=== PATIENT | male | born 1940 | race Caucasian/White ===

== ENCOUNTER 2018-04-22 16:36 | Inpatient (IN) | payer MEDICARE ==
[2018-04-22 17:10] LABS: Appearance,Urine Clear (Clear); Bacteria,Urine Rare /hpf; Bilirubin,Urine Negative (Negative); Blood,Urine Large (Negative); Color,Urine Light Red; Glucose,Urine (UA) Negative (Negative); Ketones,Urine Negative (Negative); Leukocyte Esterase,Urine Negative (Negative); Mucus,Urine Rare /hpf; Nitrite,Urine Negative (Negative); PH, Urine 7.5 (5.0-8.0); Protein,Urine 1+ (Negative); RBC,Urine 58 /hpf (0-5); Specific Gravity,Urine 1.004 (1.001-1.035); Urobilinogen,Urine <2.0 mg/dL (<2.0); WBC,Urine 6 /hpf (0-5)
[2018-04-22] MEDS ORDERED: SODIUM CHLORIDE 0.9% 1,000 ML IV STA (18:13)
--- NOTE | 2018-04-22 18:37 | ED ---
Male Urogenital HPI - General Source: patient, RN notes reviewed Mode of arrival: ambulatory Limitations: no limitations <Ghanshyam Sofia - Last Filed: 04/22/18 20:26> <Jac Ray - Last Filed: 04/22/18 20:42> - General Chief complaint: Urogenital Stated complaint: blood in urine Time Seen by Provider: 04/22/18 18:13 - History of Present Illness Initial comments: 77-year-old male presents emergency Department chief complaint of hematuria. Patient states he noticed it last night has continued today. Patient states she has no associated pain including dysuria or flank pain. Patient denies any nausea, vomiting, diarrhea, constipation. He does have a history kidney stones but this is not seems similar. Patient has no history of renal or bladder cancer. Patient denies any fever, chills, chest pain or shortness of breath. ( Ghanshyam Sofia) - Related Data Home Medications Medication Instructions Recorded Confirmed Aspirin [[place] Aspirin EC] 81 mg PO HS 04/22/18 04/22/18 Cholecalciferol [Vitamin D3] 1,000 unit PO [facility] 04/22/18 04/22/18 L.acidoph,Paracasei, B.lactis 1 cap PO HS 04/22/18 04/22/18 [Probiotic] Lisinopril [Zestril] 20 mg PO [facility] 04/22/18 04/22/18 [place] Carbonate 600 mg PO HS 04/22/18 04/22/18 Melatonin 10 mg PO HS 04/22/18 04/22/18 Mirabegron [Myrbetriq] 25 mg PO HS 04/22/18 04/22/18 Multivitamins, Thera [Multivitamin 1 tab PO [facility] 04/22/18 04/22/18 (formulary)] [place]-3 Fatty Acids [[place]-3] 1,000 mg PO BID 04/22/18 04/22/18 Primidone [Mysoline] 75 mg PO DAILY 04/22/18 04/22/18 Rivastigmine 9.5MG/24Hr Patch 1 patch TRANSDERM Q24HR 04/22/18 04/22/18 [Exelon 9.5MG/24Hr Patch] Rosuvastatin Calcium [Crestor] 40 mg PO QAM 04/22/18 04/22/18 Sotalol [Betapace] 80 mg PO BID 04/22/18 04/22/18 Tamsulosin HCl [Flomax] 0.4 mg PO QAM 04/22/18 04/22/18 Warfarin Sodium 10 mg PO SUTUTHSA 04/22/18 04/22/18 Warfarin Sodium [Coumadin] 7.5 mg PO MOWEFR 04/22/18 04/22/18 Warfarin [Coumadin] 1 mg PO MOWEFR 04/22/18 04/22/18 Allergies Allergy/AdvReac Type Severity Reaction Status Date / Time diphenhydramine Allergy Unknown Verified 04/22/18 16:57 [From Benadryl] haloperidol [From Haldol] Allergy Unknown Verified 04/22/18 16:57 NSAIDS (Non-Steroidal Allergy Unknown Verified 04/22/18 16:57 Anti-Inflamma latex AdvReac "SKIN Verified 04/22/18 18:22 REDNESS" Review of Systems ROS Other: All systems not noted in ROS Statement are negative. <Ghanshyam Sofia - Last Filed: 04/22/18 20:26> ROS Other: All systems not noted in ROS Statement are negative. <Jac Ray - Last Filed: 04/22/18 20:42> ROS Statement: Those systems with pertinent positive or pertinent negative responses have been documented in the HPI. Past Medical History Past Medical History: Atrial Fibrillation, Dementia, Hyperlipidemia, Hypertension History of Any Multi-Drug Resistant Organisms: None Reported Past Surgical History: Coronary Bypass/CABG, Hernia Repair, Pacemaker Additional Past Surgical History / Comment(s): cataract Past Psychological History: Bipolar Smoking Status: Current every day smoker Past Alcohol Use History: Rare Past Drug Use History: None Reported <Ghanshyam Sofia - Last Filed: 04/22/18 20:26> General Exam Limitations: no limitations General appearance: alert, in no apparent distress Head exam: Present: atraumatic, normocephalic, normal inspection Neck exam: Present: normal inspection. Absent: tenderness, meningismus, lymphadenopathy Respiratory exam: Present: normal lung sounds bilaterally. Absent: respiratory distress, wheezes, rales, rhonchi, stridor Cardiovascular Exam: Present: regular rate, normal rhythm, normal heart sounds. Absent: systolic murmur, diastolic murmur, rubs, gallop, clicks GI/Abdominal exam: Present: soft, normal bowel sounds. Absent: distended, tenderness, guarding, rebound, rigid Back exam: Absent: CVA tenderness (R), CVA tenderness (L) Skin exam: Present: warm, dry, intact, normal color. Absent: rash <Ghanshyam Sofia - Last Filed: 04/22/18 20:26> Course <Ghanshyam Sofia - Last Filed: 04/22/18 20:26> <Jac Ray - Last Filed: 04/22/18 20:42> Vital Signs 04/22/18 04/22/18 16:53 19:48 Temperature 97.8 F 97.4 F L Pulse Rate 64 60 Respiratory 18 16 Rate Blood Pressure 156/75 163/88 O2 Sat by Pulse 98 98 Oximetry - Reevaluation(s) Reevaluation #1: 04/22/18 20:41 PA supervision: I proceeded a [id number] evaluation patient did discuss findings the patient is family member. Patient does have hematuria which started yesterday. The patient is on Coumadin but he is subtherapeutic at this time. He does have chronic atrial fibrillation. He has no pain and follow-up with the hematuria. He has she states it seems be clearing up. CAT scan shows a 1.8 cm mass in the right lateral bladder wall. Patient will be admitted for evaluation I did discuss the case with Dr. Fatima as well as Dr. Chapman. (Jac Ray) Medical Decision Making - Lab Data Result diagrams: 04/22/18 18:30 04/22/18 18:30 <Ghanshyam Sofia - Last Filed: 04/22/18 20:26> - Lab Data Result diagrams: 04/22/18 18:30 04/22/18 18:30 <Jac Ray - Last Filed: 04/22/18 20:42> - Medical Decision Making 77-year-old male presented for painless hematuria. CT shows evidence of bladder wall mass. Patient will be admitted for urology, oncology evaluation. Patient will be kept nothing by mouth after midnight for any possible procedures in the morning. (Ghanshyam Sofia) - Lab Data Lab Results 04/22/18 04/22/18 04/22/18 Range/Units 16:58 18:30 18:30 WBC 5.8 (3.8-10.6) k/uL RBC 4.75 (4.30-5.90) m/uL Hgb 14.1 (13.0-17.5) gm/dL Hct 43.7 (39.0-53.0) % MCV 92.0 (80.0-100.0) fL MCH 29.6 (25.0-35.0) pg MCHC 32.2 (31.0-37.0) g/dL RDW 14.1 (11.5-15.5) % Plt Count 146 L (150-450) k/uL Neutrophils % 70 % Lymphocytes % 18 % Monocytes % 5 % Eosinophils % 4 % Basophils % 1 % Neutrophils # 4.1 (1.3-7.7) k/uL Lymphocytes # 1.0 (1.0-4.8) k/uL Monocytes # 0.3 (0-1.0) k/uL Eosinophils # 0.3 (0-0.7) k/uL Basophils # 0.0 (0-0.2) k/uL PT (9.0-12.0) sec INR (<1.2) APTT (22.0-30.0) sec Sodium 143 (137-145) mmol/L Potassium 4.3 (3.5-5.1) mmol/L Chloride 107 (98-107) mmol/L Carbon Dioxide 29 (22-30) mmol/L Anion Gap 7 mmol/L BUN 21 H (9-20) mg/dL Creatinine 1.16 (0.66-1.25) mg/dL Est GFR (CKD-EPI)AfAm 71 (>60 ml/min/1.73 sqM) Est GFR (CKD-EPI)NonAf 62 (>60 ml/min/1.73 sqM) Glucose 109 H (74-99) mg/dL Calcium 9.9 (8.4-10.2) mg/dL Total Bilirubin 0.3 (0.2-1.3) mg/dL AST 33 (17-59) U/L ALT 52 (21-72) U/L Alkaline Phosphatase 68 (38-126) U/L Total Protein 6.6 (6.3-8.2) g/dL Albumin 4.3 (3.5-5.0) g/dL Amylase 69 (30-110) U/L Lipase 105 (23-300) U/L Urine Color Light Red Urine Appearance Clear (Clear) Urine pH 7.5 (5.0-8.0) Ur Specific [place] 1.004 (1.001-1.035) Urine Protein 1+ H (Negative) Urine Glucose (UA) Negative (Negative) Urine Ketones Negative (Negative) Urine Blood Large H (Negative) Urine Nitrite Negative (Negative) Urine Bilirubin Negative (Negative) Urine Urobilinogen <2.0 (<2.0) mg/dL Ur Leukocyte Esterase Negative (Negative) Urine RBC 58 H (0-5) /hpf Urine WBC 6 H (0-5) /hpf Urine Bacteria Rare H (None) /hpf Urine Mucus Rare H (None) /hpf 04/22/18 Range/Units 18:30 WBC (3.8-10.6) k/uL RBC (4.30-5.90) m/uL Hgb (13.0-17.5) gm/dL Hct (39.0-53.0) % MCV (80.0-100.0) fL MCH (25.0-35.0) pg MCHC (31.0-37.0) g/dL RDW (11.5-15.5) % Plt Count (150-450) k/uL Neutrophils % % Lymphocytes % % Monocytes % % Eosinophils % % Basophils % % Neutrophils # (1.3-7.7) k/uL Lymphocytes # (1.0-4.8) k/uL Monocytes # (0-1.0) k/uL Eosinophils # (0-0.7) k/uL Basophils # (0-0.2) k/uL PT 13.0 H (9.0-12.0) sec INR 1.3 H (<1.2) APTT 25.8 (22.0-30.0) sec Sodium (137-145) mmol/L Potassium (3.5-5.1) mmol/L Chloride (98-107) mmol/L Carbon Dioxide (22-30) mmol/L Anion Gap mmol/L BUN (9-20) mg/dL Creatinine (0.66-1.25) mg/dL Est GFR (CKD-EPI)AfAm (>60 ml/min/1.73 sqM) Est GFR (CKD-EPI)NonAf (>60 ml/min/1.73 sqM) Glucose (74-99) mg/dL Calcium (8.4-10.2) mg/dL Total Bilirubin (0.2-1.3) mg/dL AST (17-59) U/L ALT (21-72) U/L Alkaline Phosphatase (38-126) U/L Total Protein (6.3-8.2) g/dL Albumin (3.5-5.0) g/dL Amylase (30-110) U/L Lipase (23-300) U/L Urine Color Urine Appearance (Clear) Urine pH (5.0-8.0) Ur Specific [place] (1.001-1.035) Urine Protein (Negative) Urine Glucose (UA) (Negative) Urine Ketones (Negative) Urine Blood (Negative) Urine Nitrite (Negative) Urine Bilirubin (Negative) Urine Urobilinogen (<2.0) mg/dL Ur Leukocyte Esterase (Negative) Urine RBC (0-5) /hpf Urine WBC (0-5) /hpf Urine Bacteria (None) /hpf Urine Mucus (None) /hpf Disposition <Ghanshyam Sofia - Last Filed: 04/22/18 20:26> <Jac Ray - Last Filed: 04/22/18 20:42> Clinical Impression: Hematuria, Bladder mass, Dementia Disposition: ADMITTED IP TO THIS HOSP Condition: Fair Referrals: Ghanshyam Dias DO [Primary Care Provider] - 1-2 days
[2018-04-22 19:17] LABS: Albumin 4.3 g/dL (3.5-5.0); Calcium 9.9 mg/dL (8.4-10.2); Potassium 4.3 mmol/L (3.5-5.1); Total Bilirubin 0.3 mg/dL (0.2-1.3); Total Protein 6.6 g/dL (6.3-8.2)
[2018-04-22 19:19] LABS: Basophils % (A) 1 %; Eosinophils # (A) 0.3 k/uL (0-0.7); Eosinophils % (A) 4 %; HCT 43.7 % (39.0-53.0); HGB 14.1 gm/dL (13.0-17.5); INR 1.3 (<1.2); Lymphocytes % (A) 18 %; MCH 29.6 pg (25.0-35.0); MCHC 32.2 g/dL (31.0-37.0); Mean Platelet Volume 6.9; Monocytes # (A) 0.3 k/uL (0-1.0); Monocytes % (A) 5 %; Neutrophils # (A) 4.1 k/uL (1.3-7.7); Neutrophils % (A) 70 %; Partial Thromboplastin Time 25.8 sec (22.0-30.0); Platelet Count 146 k/uL (150-450); RBC 4.75 m/uL (4.30-5.90); RDW 14.1 % (11.5-15.5); WBC 5.8 k/uL (3.8-10.6)
--- NOTE | 2018-04-22 20:06 | CT ---
EXAMINATION TYPE: CT abdomen pelvis wo con DATE OF EXAM: 04/22/2018 COMPARISON: None HISTORY: hematuria, pain CT DLP: 754.5 mGycm Automated exposure control for dose reduction was used. TECHNIQUE: Helical acquisition of images was performed from the lung bases through the pelvis. FINDINGS: Lung bases are clear. There is no pleural effusion. There is no pericardial effusion. Heart is enlarg ed. Liver and spleen appear normal. Bile ducts are not dilated. Gallbladder appears normal. Pancreas appe ars normal. There is no adrenal mass. Kidneys have normal size and contour. There is no evidence of a renal mass. I see no renal or ureteral calculus. There is renal vascular calcification. There is 1.8 cm density on the right lateral wall of the urinary bladder. There is no inguinal hernia. There is no free fluid in the pelvis. I see no intestinal wall thickening. There is no evidence of mesenteric edema or adenopathy. There is no evidence of free air. There is no ascites. The appendix appears normal. Abdominal aorta is athero matous. There is no evidence of aneurysm or dissection. There are numerous sigmoid diverticula. IMPRESSION: THERE IS MASS ON THE RIGHT LATERAL WALL OF THE URINARY BLADDER SUGGESTIVE OF BLADDER TUMOR. FOLLOW-UP IS RECOMMENDED. NO RENAL STONE OR OBSTRUCTION. Colonic diverticulosis without diverticulitis.
[2018-04-22] MEDS ORDERED: LORazepam 2 MG/ML INJ IV PRN (20:27)
[2018-04-22] MEDS ORDERED: ONDANSETRON 4 MG/2 ML VIAL IVP PRN (20:27)
[2018-04-22] MEDS ORDERED: NALOXONE 0.4 MG/ML 1 ML VIAL IV PRN (20:27)
[2018-04-22] MEDS ORDERED: ACETAMINOPHEN TAB 325 MG TAB PO PRN (20:27)
[2018-04-22] MEDS ORDERED: SODIUM CHLORIDE 0.9% 1,000 ML IV SCH (20:30)
--- NOTE | 2018-04-23 07:45 | P.GSCN ---
History of Present Illness Consult date: 04/23/18 History of present illness: The patient is a 77-year-old gentleman who was brought to the hospital by his because of gross hematuria for 24 hours. The blood was dark and there was some clot in the urine. There is no pain with urination. He had no fever or chills. He had a CAT scan that showed normal upper tracks but suggestive of a mass in the bladder at 1.8 cm. The patient has had no previous urologic issues. He has not had infections. There is been no previous hematuria. He has no history of stones. The patient has not previously see had any urologic problems. He has no problems voiding. He is on Coumadin. The hematuria has subsided Review of Systems - Constitutional Reports as per HPI - Genitourinary Reports as per HPI Past Medical History Past Medical History: Atrial Fibrillation, Coronary Artery Disease (CAD), Dementia, Hyperlipidemia, Hypertension, Prostate Disorder Additional Past Medical History / Comment(s): pt's stated he has louey bodies dementia, occ tremors.pt was tested x2 for sleep apnea he does'nt have it.past kidney stone when child, hx of gout, uti's bipolar-well maintained, hx cataracts-had sx, intermittent back pain. had a shingels vaccine and pne vaccine in last 5 years History of Any Multi-Drug Resistant Organisms: None Reported Past Surgical History: Coronary Bypass/CABG, Hernia Repair, Pacemaker Additional Past Surgical History / Comment(s): cataract sx, lt inguinal hernia repair, triple vessel cabg, cardioversion Past Anesthesia/Blood Transfusion Reactions: Previous Problems w/ Anesthesia Additional Past Anesthesia/Blood Transfusion Reaction / Comm: stated that after cabg sx pt had subtle meory problems attitudes and responses to certain topics were off. stated that after pt wakes from a nap he is confused. Type of Cardiac Device: Permanent Pacemaker Device Placement Date:: 2013 ? Smoking Status: Former smoker - Past Family History Mother Family Medical History: Cancer Additional Family Medical History / Comment(s): breast cancer in her 80's, hx bipolar Father Additional Family Medical History / Comment(s): lung problems Medications and Allergies Home Medications Medication Instructions Recorded Confirmed Type Aspirin [[place] Aspirin EC] 81 mg PO HS 04/22/18 04/22/18 History Cholecalciferol [Vitamin D3] 1,000 unit PO QAM 04/22/18 04/22/18 History L.acidoph,Paracasei, B.lactis 1 cap PO HS 04/22/18 04/22/18 History [Probiotic] Lisinopril [Zestril] 20 mg PO QAM 04/22/18 04/22/18 History [place] Carbonate 600 mg PO HS 04/22/18 04/22/18 History Melatonin 10 mg PO HS 04/22/18 04/22/18 History Mirabegron [Myrbetriq] 25 mg PO HS 04/22/18 04/22/18 History Multivitamins, Thera [Multivitamin 1 tab PO QAM 04/22/18 04/22/18 History (formulary)] [place]-3 Fatty Acids [[place]-3] 1,000 mg PO BID 04/22/18 04/22/18 History Primidone [Mysoline] 75 mg PO DAILY 04/22/18 04/22/18 History Rivastigmine 9.5MG/24Hr Patch 1 patch TRANSDERM Q24HR 04/22/18 04/22/18 History [Exelon 9.5MG/24Hr Patch] Rosuvastatin Calcium [Crestor] 40 mg PO QAM 04/22/18 04/22/18 History Sotalol [Betapace] 80 mg PO BID 04/22/18 04/22/18 History Tamsulosin HCl [Flomax] 0.4 mg PO QAM 04/22/18 04/22/18 History Warfarin Sodium 10 mg PO SUTUTHSA 04/22/18 04/22/18 History Warfarin Sodium [Coumadin] 7.5 mg PO MOWEFR 04/22/18 04/22/18 History Warfarin [Coumadin] 1 mg PO MOWEFR 04/22/18 04/22/18 History Allergies Allergy/AdvReac Type Severity Reaction Status Date / Time diphenhydramine Allergy Unknown Verified 04/22/18 16:57 [From Benadryl] haloperidol [From Haldol] Allergy Unknown Verified 04/22/18 16:57 NSAIDS (Non-Steroidal Allergy Unknown Verified 04/22/18 16:57 Anti-Inflamma latex AdvReac "SKIN Verified 04/22/18 18:22 REDNESS" Surgical - Exam Vital Signs Temp Pulse Resp BP Pulse Ox 97.8 F 64 18 156/75 98 04/22/18 16:53 04/22/18 16:53 04/22/18 16:53 04/22/18 16:53 04/22/18 16:53 - General well developed, well nourished, obese - Eyes PERRL - ENT no hearing loss - Neck no masses, trachea midline - Respiratory normal expansion, normal respiratory effort - Cardiovascular Rhythm: regular - Abdomen Abdomen: soft, non tender - Genitourinary normal penis with no external lesions, testicles present - Integumentary no rash, no growths - Neurologic normal coordination, normal sensation - Musculoskeletal normal posture - Psychiatric oriented to time, oriented to person, oriented to place, speech is normal, memory intact Results - Labs 04/22/18 18:30 04/22/18 18:30 Abnormal Lab Results - Last 24 Hours (Table) 04/22/18 04/22/18 04/22/18 Range/Units 16:58 18:30 18:30 Plt Count 146 L (150-450) k/uL PT (9.0-12.0) sec INR (<1.2) BUN 21 H (9-20) mg/dL Glucose 109 H (74-99) mg/dL Urine Protein 1+ H (Negative) Urine Blood Large H (Negative) Urine RBC 58 H (0-5) /hpf Urine WBC 6 H (0-5) /hpf Urine Bacteria Rare H (None) /hpf Urine Mucus Rare H (None) /hpf 04/22/18 Range/Units 18:30 Plt Count (150-450) k/uL PT 13.0 H (9.0-12.0) sec INR 1.3 H (<1.2) BUN (9-20) mg/dL Glucose (74-99) mg/dL Urine Protein (Negative) Urine Blood (Negative) Urine RBC (0-5) /hpf Urine WBC (0-5) /hpf Urine Bacteria (None) /hpf Urine Mucus (None) /hpf Diabetes panel 04/22/18 Range/Units 18:30 Sodium 143 (137-145) mmol/L Potassium 4.3 (3.5-5.1) mmol/L Chloride 107 (98-107) mmol/L Carbon Dioxide 29 (22-30) mmol/L BUN 21 H (9-20) mg/dL Creatinine 1.16 (0.66-1.25) mg/dL Glucose 109 H (74-99) mg/dL Calcium 9.9 (8.4-10.2) mg/dL AST 33 (17-59) U/L ALT 52 (21-72) U/L Alkaline Phosphatase 68 (38-126) U/L Total Protein 6.6 (6.3-8.2) g/dL Albumin 4.3 (3.5-5.0) g/dL Calcium panel 04/22/18 Range/Units 18:30 Calcium 9.9 (8.4-10.2) mg/dL Albumin 4.3 (3.5-5.0) g/dL Pituitary panel 04/22/18 Range/Units 18:30 Sodium 143 (137-145) mmol/L Potassium 4.3 (3.5-5.1) mmol/L Chloride 107 (98-107) mmol/L Carbon Dioxide 29 (22-30) mmol/L BUN 21 H (9-20) mg/dL Creatinine 1.16 (0.66-1.25) mg/dL Glucose 109 H (74-99) mg/dL Calcium 9.9 (8.4-10.2) mg/dL Adrenal panel 04/22/18 Range/Units 18:30 Sodium 143 (137-145) mmol/L Potassium 4.3 (3.5-5.1) mmol/L Chloride 107 (98-107) mmol/L Carbon Dioxide 29 (22-30) mmol/L BUN 21 H (9-20) mg/dL Creatinine 1.16 (0.66-1.25) mg/dL Glucose 109 H (74-99) mg/dL Calcium 9.9 (8.4-10.2) mg/dL Total Bilirubin 0.3 (0.2-1.3) mg/dL AST 33 (17-59) U/L ALT 52 (21-72) U/L Alkaline Phosphatase 68 (38-126) U/L Total Protein 6.6 (6.3-8.2) g/dL Albumin 4.3 (3.5-5.0) g/dL - Imaging CT scan - abdomen: report reviewed, image reviewed CT scan - pelvis: report reviewed, image reviewed Assessment and Plan Assessment: Impression: Gross hematuria, new, painless. Abnormal computed tomography scan of the bladder. Cardiac issues with anticoagulation. Recommendation: The patient will need cystoscopy in the future. I prefer he be off his anticoagulation several days before we do this. Since the bleeding is subsided I would recommend that he go home and then I see him in the office later this week where we can do cystoscopy and decide treatment. Unfortunately CT scans and ultrasound of the bladder limited in their diagnostic abilities.
--- NOTE | 2018-04-23 11:20 | P.HPIM ---
History of Present Illness combined H&P and discharge summary this is a pleasant 77 years old male with past medical history of atrial fibrillation, coronary artery disease, dementia, hypertension, hyperlipidemia and chronic back pain.Presents because of painless hematuriaof one-day duration. Currently hematuria is improving and his urinalysis slightly pinkish as per patient. No abdominal pain or dysuria. patient had CAT scan of the abdomen was suspicious for mass In the urinary bladder about 1.8 cm. Patient has been evaluated by urologist who recommended cystoscopy in the near future for evaluating of his mass and hematuria. And he recommended to hold his Coumadin for several days before the procedure. Appointment was made with urologist on 04/26/2018 and patient is aware of its and he tends to follow up as was telling me. Patient was cleared by urology for discharge since the bleeding has subsided Problems and management plan was discussed with the patient and he verbalized understanding and acceptance Patient was found stable and can be discharged and guarded prognosis however he needs follow-up as an outpatient Gen: patient is a AAOx3, no distress CVS: S1-S2, RRR, no murmur Lungs: B/L CTA, no wheezing Abdomen: soft, no distention, no tenderness, positive bowel sounds Extremity: no leg edema or induration Time spent more than 35 minutes Review of Systems CONSTITUTIONAL: No fever, no malaise, no fatigue. HEENT: No recent visual problems or hearing problems. Denied any sore throat. CARDIOVASCULAR: No orthopnea, PND, no palpitations, no syncope. PULMONARY: No shortness of breath, no cough, no hemoptysis. GASTROINTESTINAL: No diarrhea, no nausea, no vomiting, no abdominal pain. Normoactive bowel sounds. NEUROLOGICAL: No headaches, no weakness, no numbness. HEMATOLOGICAL: Denies any bleeding or petechiae. GENITOURINARY: Denies any burning micturition, frequency, or urgency. MUSCULOSKELETAL/RHEUMATOLOGICAL: Denies any joint pain, swelling, or any muscle pain. ENDOCRINE: Denies any polyuria or polydipsia. Past Medical History Past Medical History: Atrial Fibrillation, Coronary Artery Disease (CAD), Dementia, Hyperlipidemia, Hypertension, Prostate Disorder Additional Past Medical History / Comment(s): pt's stated he has louey bodies dementia, occ tremors.pt was tested x2 for sleep apnea he does'nt have it.past kidney stone when child, hx of gout, uti's bipolar-well maintained, hx cataracts-had sx, intermittent back pain. had a shingels vaccine and pne vaccine in last 5 years History of Any Multi-Drug Resistant Organisms: None Reported Past Surgical History: Coronary Bypass/CABG, Hernia Repair, Pacemaker Additional Past Surgical History / Comment(s): cataract sx, lt inguinal hernia repair, triple vessel cabg, cardioversion Past Anesthesia/Blood Transfusion Reactions: Previous Problems w/ Anesthesia Additional Past Anesthesia/Blood Transfusion Reaction / Comment(s): stated that after cabg sx pt had subtle meory problems attitudes and responses to certain topics were off. stated that after pt wakes from a nap he is confused. Type of Cardiac Device: Permanent Pacemaker Device Placement Date:: 2013 ? Smoking Status: Former smoker - Past Family History Mother Family Medical History: Cancer Additional Family Medical History / Comment(s): breast cancer in her 80's, hx bipolar Father Additional Family Medical History / Comment(s): lung problems Medications and Allergies Home Medications Medication Instructions Recorded Confirmed Type Aspirin [[place] Aspirin EC] 81 mg PO HS 04/22/18 04/22/18 History Cholecalciferol [Vitamin D3] 1,000 unit PO QAM 04/22/18 04/22/18 History L.acidoph,Paracasei, B.lactis 1 cap PO HS 04/22/18 04/22/18 History [Probiotic] Lisinopril [Zestril] 20 mg PO QAM 04/22/18 04/22/18 History [place] Carbonate 600 mg PO HS 04/22/18 04/22/18 History Melatonin 10 mg PO HS 04/22/18 04/22/18 History Mirabegron [Myrbetriq] 25 mg PO HS 04/22/18 04/22/18 History Multivitamins, Thera [Multivitamin 1 tab PO QAM 04/22/18 04/22/18 History (formulary)] [place]-3 Fatty Acids [[place]-3] 1,000 mg PO BID 04/22/18 04/22/18 History Primidone [Mysoline] 75 mg PO DAILY 04/22/18 04/22/18 History Rivastigmine 9.5MG/24Hr Patch 1 patch TRANSDERM Q24HR 04/22/18 04/22/18 History [Exelon 9.5MG/24Hr Patch] Rosuvastatin Calcium [Crestor] 40 mg PO QAM 04/22/18 04/22/18 History Sotalol [Betapace] 80 mg PO BID 04/22/18 04/22/18 History Tamsulosin HCl [Flomax] 0.4 mg PO QAM 04/22/18 04/22/18 History Warfarin Sodium 10 mg PO SUTUTHSA 04/22/18 04/22/18 History Warfarin Sodium [Coumadin] 7.5 mg PO MOWEFR 04/22/18 04/22/18 History Warfarin [Coumadin] 1 mg PO MOWEFR 04/22/18 04/22/18 History Allergies Allergy/AdvReac Type Severity Reaction Status Date / Time diphenhydramine Allergy Unknown Verified 04/22/18 16:57 [From Benadryl] haloperidol [From Haldol] Allergy Unknown Verified 04/22/18 16:57 NSAIDS (Non-Steroidal Allergy Unknown Verified 04/22/18 16:57 Anti-Inflamma latex AdvReac "SKIN Verified 04/22/18 18:22 REDNESS" Physical Exam Vitals: Vital Signs Temp Pulse Pulse Pulse Resp BP BP 04/23/18 05:00 97.4 F L 60 20 134/66 04/23/18 00:00 62 18 04/22/18 23:26 98.3 F 64 18 167/74 04/22/18 21:30 97.5 F L 67 20 198/92 04/22/18 21:05 60 16 165/82 04/22/18 19:48 97.4 F L 60 16 163/88 04/22/18 16:53 97.8 F 64 18 156/75 Pulse Ox 04/23/18 05:00 96 04/23/18 00:00 04/22/18 23:26 95 04/22/18 21:30 96 04/22/18 21:05 98 04/22/18 19:48 98 04/22/18 16:53 98 Intake and Output 04/22/18 04/23/18 04/23/18 22:59 06:59 14:59 Intake Total 1000 600 Output Total 550 Balance 1000 50 Intake: Intake, IV Titration 1000 600 Amount Sodium Chloride 0.9% 1, 600 000 ml @ 75 mls/hr IV . [id number] [facility] Rx#:[id number] Sodium Chloride 0.9% 1, 1000 000 ml @ 999 mls/hr IV . Q1H1M [facility] Rx#:[id number] Output: Urine 550 Other: Voiding Method Urinal Urinal Weight 90.718 kg GENERAL: The patient is alert and oriented x3, not in any acute distress. Well developed, well nourished. HEENT: Pupils are round and equally reacting to light. EOMI. No scleral icterus. No conjunctival pallor. Normocephalic, atraumatic. No pharyngeal erythema. No thyromegaly. CARDIOVASCULAR: S1 and S2 present. No murmurs, rubs, or gallops. PULMONARY: Chest is clear to auscultation, no wheezing or crackles. ABDOMEN: Soft, nontender, nondistended, normoactive bowel sounds. No palpable organomegaly. MUSCULOSKELETAL: No joint swelling or deformity. EXTREMITIES: No cyanosis, clubbing, or pedal edema. NEUROLOGICAL: Gross neurological examination did not reveal any focal deficits. SKIN: No rashes. Results CBC & Chem 7: 04/22/18 18:30 04/22/18 18:30 Labs: Abnormal Lab Results - Last 24 Hours (Table) 04/22/18 04/22/18 04/22/18 Range/Units 16:58 18:30 18:30 Plt Count 146 L (150-450) k/uL PT (9.0-12.0) sec INR (<1.2) BUN 21 H (9-20) mg/dL Glucose 109 H (74-99) mg/dL Urine Protein 1+ H (Negative) Urine Blood Large H (Negative) Urine RBC 58 H (0-5) /hpf Urine WBC 6 H (0-5) /hpf Urine Bacteria Rare H (None) /hpf Urine Mucus Rare H (None) /hpf 04/22/18 Range/Units 18:30 Plt Count (150-450) k/uL PT 13.0 H (9.0-12.0) sec INR 1.3 H (<1.2) BUN (9-20) mg/dL Glucose (74-99) mg/dL Urine Protein (Negative) Urine Blood (Negative) Urine RBC (0-5) /hpf Urine WBC (0-5) /hpf Urine Bacteria (None) /hpf Urine Mucus (None) /hpf Microbiology - Last 24 Hours (Table) 04/22/18 16:58 Urine Culture - Preliminary Urine,Voided Thrombosis Risk Factor Assmnt - Choose All That Apply Any of the Below Risk Factors Present?: Yes Each Factor Represents 1 point: Obesity (BMI >25) Other Risk Factors: No Other congenital or acquired thrombophilia - If yes, enter type in comment: No Thrombosis Risk Factor Assessment Total Risk Factor Score: 1 Thrombosis Risk Factor Assessment Level: Low Risk Assessment and Plan Assessment: history of chronic atrial fibrillation History of coronary artery disease Dementia Essential hypertension Hyperlipidemia History of chronic intermittent back pain Plan: Labs and medication were reviewed.. Continue same treatment. Continue with symptomatic treatment. Resume home medication. Monitor lytes and vitals. DVT and GI prophylaxis. Further recommendations of the clinical course of the patient DVT prophylaxis: Subcutaneous heparin GI Prophylaxis: Pepcid PT/OT: Pending Prognosis is guarded
--- NOTE | 2018-04-23 11:21 | P.DS ---
Providers Date of admission: 04/22/18 20:27 Attending physician: Domi Hernandez Consults: 04/22/18 20:27 Consult Physician Stat Consulting Provider: Maximus Chapman Consult Reason/Comments: Bladder mass, hematuria Do you want consulting provider notified?: Yes 04/22/18 21:31 Consult Physician Routine Consulting Provider: Martin Reyes Consult Reason/Comments: Bladder mass Do you want consulting provider notified?: Yes, Notify in am [facility] Course: please see H&P for today Patient Condition at Discharge: Fair Plan - Discharge Summary Discharge Rx Participant: No New Discharge Prescriptions: No Action Mirabegron [Myrbetriq] 25 mg PO HS L.acidoph,Paracasei, B.lactis [Probiotic] 1 cap PO HS Primidone [Mysoline] 75 mg PO DAILY Melatonin 10 mg PO HS Sotalol [Betapace] 80 mg PO BID [place] Carbonate 600 mg PO HS Aspirin [[place] Aspirin EC] 81 mg PO HS Warfarin Sodium 10 mg PO SUTUTHSA Warfarin [Coumadin] 1 mg PO MOWEFR Warfarin Sodium [Coumadin] 7.5 mg PO MOWEFR Tamsulosin HCl [Flomax] 0.4 mg PO QAM Rosuvastatin Calcium [Crestor] 40 mg PO QAM Rivastigmine 9.5MG/24Hr Patch [Exelon 9.5MG/24Hr Patch] 1 patch TRANSDERM Q24HR [place]-3 Fatty Acids [[place]-3] 1,000 mg PO BID Lisinopril [Zestril] 20 mg PO QAM Multivitamins, Thera [Multivitamin (formulary)] 1 tab PO QAM Cholecalciferol [Vitamin D3] 1,000 unit PO QAM Discharge Medication List Aspirin [[place] Aspirin EC] 81 mg PO HS 04/22/18 [History] Cholecalciferol [Vitamin D3] 1,000 unit PO QAM 04/22/18 [History] L.acidoph,Paracasei, B.lactis [Probiotic] 1 cap PO HS 04/22/18 [History] Lisinopril [Zestril] 20 mg PO QAM 04/22/18 [History] [place] Carbonate 600 mg PO HS 04/22/18 [History] Melatonin 10 mg PO HS 04/22/18 [History] Mirabegron [Myrbetriq] 25 mg PO HS 04/22/18 [History] Multivitamins, Thera [Multivitamin (formulary)] 1 tab PO QAM 04/22/18 [History] [place]-3 Fatty Acids [[place]-3] 1,000 mg PO BID 04/22/18 [History] Primidone [Mysoline] 75 mg PO DAILY 04/22/18 [History] Rivastigmine 9.5MG/24Hr Patch [Exelon 9.5MG/24Hr Patch] 1 patch TRANSDERM Q24HR 04/22/18 [History] Rosuvastatin Calcium [Crestor] 40 mg PO QAM 04/22/18 [History] Sotalol [Betapace] 80 mg PO BID 04/22/18 [History] Tamsulosin HCl [Flomax] 0.4 mg PO QAM 04/22/18 [History] Warfarin Sodium 10 mg PO SUTUTHSA 04/22/18 [History] Warfarin Sodium [Coumadin] 7.5 mg PO MOWEFR 04/22/18 [History] Warfarin [Coumadin] 1 mg PO MOWEFR 04/22/18 [History] Follow up Appointment(s)/Referral(s): Ghanshyam Dias DO [Primary Care Provider] - 1-2 days Maximus Chapman MD [STAFF PHYSICIAN] - 04/26/18 Activity/Diet/Wound Care/Special Instructions: cardiac diet Activity is limited till you see your doctor
--- NOTE | 2018-04-23 12:15 | P.CONS ---
History of Present Illness - Reason for Consult Consult date: 04/23/18 Bladder Mass Requesting physician: Kavon E Sheet - Chief Complaint Hematuria - History of Present Illness Mr. Choudhury is a pleasant 77 year old male who has a known history of afib on anticoagulation who was admitted with hematuria. A CT scan of his abdomen reveal a left lateral wall bladder mass. At the time of evaluation his hematuria has resolved, urology has been consulted and planning to follow-up with outpatient cystoscopy for further evaluation and possible biopsy of bladder mass. Oncology had been consulted regarding this mass. 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 No personal history of cancer, no recent weight loss. Review of Systems A 14 point review of systems assessed and completed and all negative except HPI Past Medical History Past Medical History: Atrial Fibrillation, Coronary Artery Disease (CAD), Dementia, Hyperlipidemia, Hypertension, Prostate Disorder Additional Past Medical History / Comment(s): pt's stated he has louey bodies dementia, occ tremors.pt was tested x2 for sleep apnea he does'nt have it.past kidney stone when child, hx of gout, uti's bipolar-well maintained, hx cataracts-had sx, intermittent back pain. had a shingels vaccine and pne vaccine in last 5 years History of Any Multi-Drug Resistant Organisms: None Reported Past Surgical History: Coronary Bypass/CABG, Hernia Repair, Pacemaker Additional Past Surgical History / Comment(s): cataract sx, lt inguinal hernia repair, triple vessel cabg, cardioversion Past Anesthesia/Blood Transfusion Reactions: Previous Problems w/ Anesthesia Additional Past Anesthesia/Blood Transfusion Reaction / Comm: stated that after cabg sx pt had subtle meory problems attitudes and responses to certain topics were off. stated that after pt wakes from a nap he is confused. Type of Cardiac Device: Permanent Pacemaker Device Placement Date:: 2013 ? Smoking Status: Former smoker - Past Family History Mother Family Medical History: Cancer Additional Family Medical History / Comment(s): breast cancer in her 80's, hx bipolar Father Additional Family Medical History / Comment(s): lung problems Medications and Allergies Home Medications Medication Instructions Recorded Confirmed Type Aspirin [[place] Aspirin EC] 81 mg PO HS 04/22/18 04/22/18 History Cholecalciferol [Vitamin D3] 1,000 unit PO QAM 04/22/18 04/22/18 History L.acidoph,Paracasei, B.lactis 1 cap PO HS 04/22/18 04/22/18 History [Probiotic] Lisinopril [Zestril] 20 mg PO QAM 04/22/18 04/22/18 History [place] Carbonate 600 mg PO HS 04/22/18 04/22/18 History Melatonin 10 mg PO HS 04/22/18 04/22/18 History Mirabegron [Myrbetriq] 25 mg PO HS 04/22/18 04/22/18 History Multivitamins, Thera [Multivitamin 1 tab PO QAM 04/22/18 04/22/18 History (formulary)] [place]-3 Fatty Acids [[place]-3] 1,000 mg PO BID 04/22/18 04/22/18 History Primidone [Mysoline] 75 mg PO DAILY 04/22/18 04/22/18 History Rivastigmine 9.5MG/24Hr Patch 1 patch TRANSDERM Q24HR 04/22/18 04/22/18 History [Exelon 9.5MG/24Hr Patch] Rosuvastatin Calcium [Crestor] 40 mg PO QAM 04/22/18 04/22/18 History Sotalol [Betapace] 80 mg PO BID 04/22/18 04/22/18 History Tamsulosin HCl [Flomax] 0.4 mg PO QAM 04/22/18 04/22/18 History Warfarin Sodium 10 mg PO SUTUTHSA 04/22/18 04/22/18 History Warfarin Sodium [Coumadin] 7.5 mg PO MOWEFR 04/22/18 04/22/18 History Warfarin [Coumadin] 1 mg PO MOWEFR 04/22/18 04/22/18 History Allergies Allergy/AdvReac Type Severity Reaction Status Date / Time diphenhydramine Allergy Unknown Verified 04/22/18 16:57 [From Benadryl] haloperidol [From Haldol] Allergy Unknown Verified 04/22/18 16:57 NSAIDS (Non-Steroidal Allergy Unknown Verified 04/22/18 16:57 Anti-Inflamma latex AdvReac "SKIN Verified 04/22/18 18:22 REDNESS" Physical Exam Vitals: Vital Signs Temp Pulse Pulse Pulse Resp BP BP 04/23/18 05:00 97.4 F L 60 20 134/66 04/23/18 00:00 62 18 04/22/18 23:26 98.3 F 64 18 167/74 04/22/18 21:30 97.5 F L 67 20 198/92 04/22/18 21:05 60 16 165/82 04/22/18 19:48 97.4 F L 60 16 163/88 04/22/18 16:53 97.8 F 64 18 156/75 Pulse Ox 04/23/18 05:00 96 04/23/18 00:00 04/22/18 23:26 95 04/22/18 21:30 96 04/22/18 21:05 98 04/22/18 19:48 98 04/22/18 16:53 98 Intake and Output 04/22/18 04/23/18 04/23/18 22:59 06:59 14:59 Intake Total 1000 600 Output Total 550 Balance 1000 50 Intake: Intake, IV Titration 1000 600 Amount Sodium Chloride 0.9% 1, 600 000 ml @ 75 mls/hr IV . [id number] [facility] Rx#:[id number] Sodium Chloride 0.9% 1, 1000 000 ml @ 999 mls/hr IV . Q1H1M [facility] Rx#:[id number] Output: Urine 550 Other: Voiding Method Urinal Urinal Weight 90.718 kg GEN: Alert and Oriented, Poor Historian and remediation required during education as he appears to be forgertful Neck: Supple, No cervical lymphadenopathy on exam Head: NC/NT Lungs CtA Bilateral no increased effort Heart RRR. S1s2 Abdomen Soft, Obese, Non-tender, Non distended Ext no edema and POsitive pedal pulses Psch calm and corporative Neuro - No focal deficits noted Results CBC & Chem 7: 04/22/18 18:30 04/22/18 18:30 Labs: Abnormal Lab Results - Last 24 Hours (Table) 04/22/18 04/22/18 04/22/18 Range/Units 16:58 18:30 18:30 Plt Count 146 L (150-450) k/uL PT (9.0-12.0) sec INR (<1.2) BUN 21 H (9-20) mg/dL Glucose 109 H (74-99) mg/dL Urine Protein 1+ H (Negative) Urine Blood Large H (Negative) Urine RBC 58 H (0-5) /hpf Urine WBC 6 H (0-5) /hpf Urine Bacteria Rare H (None) /hpf Urine Mucus Rare H (None) /hpf 04/22/18 Range/Units 18:30 Plt Count (150-450) k/uL PT 13.0 H (9.0-12.0) sec INR 1.3 H (<1.2) BUN (9-20) mg/dL Glucose (74-99) mg/dL Urine Protein (Negative) Urine Blood (Negative) Urine RBC (0-5) /hpf Urine WBC (0-5) /hpf Urine Bacteria (None) /hpf Urine Mucus (None) /hpf Microbiology - Last 24 Hours (Table) 04/22/18 16:58 Urine Culture - Preliminary Urine,Voided CT scan - abdomen: report reviewed Assessment and Plan Plan: Assessment and Recommendations: 1. Hematuria - Likely secondary to finding of bladder mass and anticoagualtion therapy - Hemoglobin is stable and hematuria has resolved 2. LEft Lateral Wall Bladder Mass: - Plan for outpatient procedure with Urology for further investigation of mass , if pathology shows or reveals a malignancy will follow-up in office as outpatient. Physician Attestation: I have completed the full history and physical of this patient and agree with above dictation by Brittany Garsia NP dictated as a scribe.
[2018-04-23 12:20] VITALS: BP 148/78; PULSE 65; RESP 18; TEMP 98
== END 2018-04-23 15:25 | disposition home or self-care (01) | DRG 700 ==
LOC: EC 16:36 → 3NMEDONC 20:27
PROVIDERS: ADMIT Hospitalist; ATTEND Hospitalist
DX: N32.89 Other specified disorders of bladder (principal); E78.5 Hyperlipidemia, unspecified; G31.83 Neurocognitive disorder with Lewy bodies; F02.80 Dementia in other diseases classified elsewhere, unspecified severity, without behavioral disturbance, psychotic disturbance, mood disturbance, and anxiety; Z87.891 Personal history of nicotine dependence; I10 Essential (primary) hypertension; I25.10 Atherosclerotic heart disease of native coronary artery without angina pectoris; I48.2 Chronic atrial fibrillation; R31.0 Gross hematuria; Z79.01 Long term (current) use of anticoagulants; Z79.899 Other long term (current) drug therapy; Z80.3 Family history of malignant neoplasm of breast; Z87.442 Personal history of urinary calculi; Z95.1 Presence of aortocoronary bypass graft; R25.1 Tremor, unspecified; M54.9 Dorsalgia, unspecified; G89.29 Other chronic pain; T45.515A Adverse effect of anticoagulants, initial encounter; Z79.82 Long term (current) use of aspirin; Z88.8 Allergy status to other drugs, medicaments and biological substances; Z88.6 Allergy status to analgesic agent; Z91.040 Latex allergy status; M10.9 Gout, unspecified; Z87.440 Personal history of urinary (tract) infections; Z95.0 Presence of cardiac pacemaker; F31.9 Bipolar disorder, unspecified; Z98.49 Cataract extraction status, unspecified eye; Z81.8 Family history of other mental and behavioral disorders
CPT/HCPCS: 36415; 74176; 80053; 81001; 82150; 83690; 85025; 85610; 85730; 87086; 96360; 96361; 99284

== ENCOUNTER 2018-04-24 10:33 | Emergency (ER) | payer MEDICARE ==
[2018-04-24 10:40] VITALS: RESP 18
--- NOTE | 2018-04-24 11:17 | ED ---
General Adult HPI - General Chief complaint: Fall Stated complaint: fell down 5 stairs/back pain Time Seen by Provider: 04/24/18 10:35 Source: patient, RN notes reviewed Mode of arrival: ambulatory Limitations: no limitations - History of Present Illness Initial comments: This a 77-year-old male who presents to the emergency department after he fell down 5 steps last night. Patient states he thinks he hit every step on the way down and he hurt his left shoulder and left fourth toe. Patient states he did not lose consciousness but he did hit the left side of his head but he did not notice that until this morning. Patient denies any headache patient denies numbness weakness. Patient denies any neck pain. Patient denies any chest pain difficult breathing shortness of breath per patient states he was not having any symptoms prior to the fall he thinks he just slipped on the step. Patient denies abdominal pain. Patient denies back pain. Patient denies any hip pain or upper extremity pain or lower extremity pain. - Related Data Home Medications Medication Instructions Recorded Confirmed Aspirin [Zeb Aspirin EC] 81 mg PO HS 04/22/18 04/24/18 Cholecalciferol [Vitamin D3] 1,000 unit PO QAM 04/22/18 04/24/18 L.acidoph,Paracasei, B.lactis 1 cap PO HS 04/22/18 04/24/18 [Probiotic] Lisinopril [Zestril] 20 mg PO QAM 04/22/18 04/24/18 [place] Carbonate 600 mg PO HS 04/22/18 04/24/18 Melatonin 10 mg PO HS 04/22/18 04/24/18 Mirabegron [Myrbetriq] 25 mg PO HS 04/22/18 04/24/18 Multivitamins, Thera [Multivitamin 1 tab PO QAM 04/22/18 04/24/18 (formulary)] [place]-3 Fatty Acids [[place]-3] 1,000 mg PO BID 04/22/18 04/24/18 Primidone [Mysoline] 75 mg PO HS 04/22/18 04/24/18 Rivastigmine 9.5MG/24Hr Patch 1 patch TRANSDERM Q24HR 04/22/18 04/24/18 [Exelon 9.5MG/24Hr Patch] Rosuvastatin Calcium [Crestor] 40 mg PO QAM 04/22/18 04/24/18 Sotalol [Betapace] 80 mg PO BID 04/22/18 04/24/18 Tamsulosin HCl [Flomax] 0.4 mg PO QAM 04/22/18 04/24/18 Aspirin EC [Ecotrin Low Dose] 81 mg PO HS 04/24/18 04/24/18 L.acidoph,Paracasei, B.lactis 1 cap PO HS 04/24/18 04/24/18 [Probiotic] [place] Carbonate 600 mg PO HS 04/24/18 04/24/18 Melatonin 10 mg PO HS 04/24/18 04/24/18 Mirabegron [Myrbetriq] 25 mg PO HS 04/24/18 04/24/18 Warfarin [Coumadin] 1 mg PO MOWEFR 04/24/18 04/24/18 Warfarin [Coumadin] 2.5 mg PO SUTUTHSA 04/24/18 04/24/18 Warfarin [Coumadin] 7.5 mg PO DAILY 04/24/18 04/24/18 Allergies Allergy/AdvReac Type Severity Reaction Status Date / Time diphenhydramine Allergy Unknown Verified 04/24/18 10:57 [From Benadryl] haloperidol [From Haldol] Allergy Unknown Verified 04/24/18 10:57 NSAIDS (Non-Steroidal Allergy Unknown Verified 04/24/18 10:57 Anti-Inflamma latex AdvReac "SKIN Verified 04/24/18 10:57 REDNESS" Review of Systems ROS Statement: Those systems with pertinent positive or pertinent negative responses have been documented in the HPI. ROS Other: All systems not noted in ROS Statement are negative. Past Medical History Past Medical History: Atrial Fibrillation, Coronary Artery Disease (CAD), Dementia, Hyperlipidemia, Hypertension, Prostate Disorder Additional Past Medical History / Comment(s): pt's stated he has louey bodies dementia, occ tremors.pt was tested x2 for sleep apnea he does'nt have it.past kidney stone when child, hx of gout, uti's bipolar-well maintained, hx cataracts-had sx, intermittent back pain. had a shingels vaccine and pne vaccine in last 5 years History of Any Multi-Drug Resistant Organisms: None Reported Past Surgical History: Coronary Bypass/CABG, Hernia Repair, Pacemaker Additional Past Surgical History / Comment(s): cataract sx, lt inguinal hernia repair, triple vessel cabg, cardioversion Past Anesthesia/Blood Transfusion Reactions: Previous Problems w/ Anesthesia Additional Past Anesthesia/Blood Transfusion Reaction / Comment(s): stated that after cabg sx pt had subtle meory problems attitudes and responses to certain topics were off. stated that after pt wakes from a nap he is confused. Type of Cardiac Device: Permanent Pacemaker Device Placement Date:: 2013 ? Past Psychological History: Bipolar Smoking Status: Former smoker - Past Family History Mother Family Medical History: Cancer Additional Family Medical History / Comment(s): breast cancer in her 80's, hx bipolar Father Additional Family Medical History / Comment(s): lung problems General Exam - General Exam Comments Initial Comments: GENERAL: Patient is well-developed and well-nourished. Patient is nontoxic and well- hydrated and is in mild distress. ENT: Neck is soft and supple. No significant lymphadenopathy is noted. Oropharynx is clear. Moist mucous membranes. Neck has full range of motion without eliciting any pain. Patient has a superficial abrasion and some tenderness to the temporal region on the left side of the scalp EYES: The sclera were anicteric and conjunctiva were pink and moist. Extraocular movements were intact and pupils were equal round and reactive to light. Eyelids were unremarkable. PULMONARY: Unlabored respirations. Good breath sounds bilaterally. No audible rales rhonchi or wheezing was noted. CARDIOVASCULAR: There is a regular rate and rhythm without any murmurs gallops or rubs. Femoral pulses are equal bilaterally ABDOMEN: Soft and nontender with normal bowel sounds. SKIN: Skin is clear with no lesions or rashes and otherwise unremarkable. NEUROLOGIC: Patient is alert and oriented x3. Cranial nerves II through XII are grossly intact. Motor and sensory are also intact. Normal speech, volume and content. Symmetrical smile. MUSCULOSKELETAL: Patient's left shoulder is tender anteriorly and there is some ecchymosis in that area. No gross deformities noted.. No lower extremity swelling or edema. No calf tenderness. Patient's fourth left toe is tender to palpation. patient has good radial pulses bilaterally and good DP pulses. LYMPHATICS: No significant lymphadenopathy is noted PSYCHIATRIC: Normal psychiatric evaluation. Limitations: no limitations Course Vital Signs 04/24/18 10:36 Temperature 98.5 F Pulse Rate 75 Respiratory 18 Rate Blood Pressure 185/100 O2 Sat by Pulse 97 Oximetry Medical Decision Making - Medical Decision Making Patient states he is up-to-date on his tetanus CT brain and C-spine showed no acute abnormality. Shoulder x-ray shows no acute normalities. Toe x-ray shows no acute abnormality. Disposition Clinical Impression: Head injury, Shoulder strain, Toe contusion Disposition: HOME SELF-CARE Condition: Good Instructions: Fall Prevention for Older Adults (ED) Is patient prescribed a controlled substance at d/c from ED?: No Referrals: Ghanshyam Dias DO [Primary Care Provider] - 1-2 days Time of Disposition: 13:04
--- NOTE | 2018-04-24 12:05 | XR ---
EXAMINATION TYPE: XR shoulder complete LT DATE OF EXAM: 04/24/2018 CLINICAL HISTORY: Pain after fall injury. TECHNIQUE: Three views of the left shoulder are obtained. COMPARISON: None. FINDINGS: Osseous structures are demineralized. There is no acute fracture/dislocation evident in the left shoulder. Moderate narrowing acromioclavicular joint is present with mild spurring. Moderate na rrowing glenohumeral joint with mild to moderate spurring is present The visualized ribs are intact and unremarkable. Overlying pacemaker is partially imaged. There is partial visualization of sternal wires and mediastinal clips. IMPRESSION: There is no acute fracture or dislocation in the left shoulder.
--- NOTE | 2018-04-24 12:07 | XR ---
EXAMINATION TYPE: XR toes LT DATE OF EXAM: 04/24/2018 COMPARISON: NONE HISTORY: Pain after fall injury. TECHNIQUE: 3 views left toes are acquired. FINDINGS: Demineralization is present. No acute fracture or dislocation is identified. Flexion in the toes most prominent in the fifth toes is noted. There is broad-based osteochondroma from the medial base of the first distal phalanx. There is moderate narrowing and spurring throughout the DIP joints of the toes. Mild diffuse subcutaneous edema is present. IMPRESSION: No acute displaced fracture in the left-sided toes is identified
--- NOTE | 2018-04-24 12:19 | CT ---
EXAMINATION TYPE: CT brain talia kimbrough DATE OF EXAM: 04/24/2018 COMPARISON: NONE HISTORY: Fall injury, struck back of head with headache and neck pain CT DLP: 1536.5 mGycm. Automated Exposure Control for Dose Reduction was Utilized. TECHNIQUE: CT scan of the head and cervical spine are performed without contrast. FINDINGS: There is no acute intracranial hemorrhage or midline shift identified. There is ventricul ar and sulcal prominence consistent with moderate diffuse cerebral atrophy. The globes are intact an d the visualized sinuses are clear. The calvarium is intact. Vascular calcification distal internal c arotid arteries is present bilaterally. Cervical spine is visualized in its entirety from C1 through upper thoracic levels and demonstrates s traightened alignment without evidence of acute fracture or dislocation. There is grade 1 retrolisthe sis of C4 on C5 and C5 on C6. There is moderate spurring and disc space narrowing C4-C5 through C6-C7 levels on sagittal images. Prevertebral soft tissue appears within normal limits. The C1-C2 articul ation is within normal limits on the coronal images. Review of axial images shows multilevel uncovertebral facet degenerative changes contributing to mult ilevel neural foraminal narrowing with posterior spur disc complexes effacing anterior thecal sac at C5-C6 and C6-C7 level. There is subcentimeter low dense right thyroid nodule axial image 70 noted. Th ere is partial visualization of pacemaker wires in the upper thorax. IMPRESSION: 1. There is no acute fracture or dislocation evident in the cervical spine. 2. No acute intracranial hemorrhage or midline shift is seen.
[2018-04-24 13:05] VITALS: BP 148/78; PULSE 61; TEMP 98.3
== END 2018-04-24 13:13 | disposition home or self-care (01) ==
LOC: EC 10:33
DX: S46.912A Strain of unspecified muscle, fascia and tendon at shoulder and upper arm level, left arm, initial encounter (principal); S90.122A Contusion of left lesser toe(s) without damage to nail, initial encounter; S09.90XA Unspecified injury of head, initial encounter; I48.91 Unspecified atrial fibrillation; I25.10 Atherosclerotic heart disease of native coronary artery without angina pectoris; F03.90 Unspecified dementia, unspecified severity, without behavioral disturbance, psychotic disturbance, mood disturbance, and anxiety; E78.5 Hyperlipidemia, unspecified; I10 Essential (primary) hypertension; N42.9 Disorder of prostate, unspecified; F31.9 Bipolar disorder, unspecified; Z95.0 Presence of cardiac pacemaker; Z95.1 Presence of aortocoronary bypass graft; Z98.890 Other specified postprocedural states; Z87.891 Personal history of nicotine dependence; Z79.01 Long term (current) use of anticoagulants; Z79.82 Long term (current) use of aspirin; Z79.899 Other long term (current) drug therapy; Z88.6 Allergy status to analgesic agent; Z88.8 Allergy status to other drugs, medicaments and biological substances; Z91.040 Latex allergy status; W10.9XXA Fall (on) (from) unspecified stairs and steps, initial encounter; Y92.009 Unspecified place in unspecified non-institutional (private) residence as the place of occurrence of the external cause
CPT/HCPCS: 70450; 72125; 99284

== ENCOUNTER 2018-05-31 10:30 | Inpatient (IN) | payer MEDICARE ==
--- NOTE | 2018-05-31 11:30 | ED ---
General Adult HPI - General Chief complaint: Weakness Stated complaint: Post op cognitive dysfunction, confusion Time Seen by Provider: 05/31/18 10:53 Source: patient Mode of arrival: ambulatory Limitations: no limitations - History of Present Illness Initial comments: Dictation was produced using [email or web address] dictation software. please excuse any grammatical, word or spelling errors. Chief Complaint: 78-year-old male presents with family for worsening dementia and difficulties with activities of daily living. History of Present Illness: Patient is 78-year-old male. He was diagnosed with [place] body dementia. Patient has seen multiple specialists throughout the state. Most recently patient was at [facility] where multiple tests were done. They came to the conclusion that patient suffers from Dav[place] body dementia. One month ago patient had diagnosis of supposedly bladder cancer. He was supposed to be ordered for BCG treatments however because of the incontinence he was not able to do so. Since that event patient has been having worsening visual hallucinations, memory loss. He was recently diagnosed with urinary tract infection. Supposedly he was seen by his primary care physician last week where he was given prescription for Macrobid. He was directed to come to the emergency department at the time however family postponed it to today. Patient reports that he's been having visual hallucinations. He is having worsening short-term and long-term memory loss. Patient has no complaints at this time. He however is a poor historian. Family does not report any recent cough, fevers, diarrhea. The ROS documented in this emergency department record has been reviewed and confirmed by me. Those systems with pertinent positive or negative responses have been documented in the HPI. All other systems are other negative and/or noncontributory. PHYSICAL EXAM: General Impression: Alert and oriented x2/4, not in acute distress HEENT: Normocephalic atraumatic, extra-ocular movements intact, pupils equal and reactive to light bilaterally, mucous membranes moist. Cardiovascular: Heart regular rate and rhythm, S1&S2 audible, no murmurs, rubs or gallops Chest: Lungs clear to auscultation bilaterally, no rhonchi, no wheeze, no rales Abdomen: Bowel sounds present, abdomen soft, non-tender, non-distended, no organomegaly Musculoskeletal: Pulses present and equal in all extremities, no peripheral edema Motor: Power 5/5 bilaterally, no focal deficits noted Neurological: CN II-XII grossly intact, no focal motor or sensory deficits noted , no clonus, no hyperreflexia Skin: Intact with no visualized rashes Psych: Normal affect and mood ED course:78-year-old male who was allegedly sent in by primary care physician. All signs upon arrival are within acceptable limits. Patient is well- appearing. No focal neurologic deficits. Patient's symptoms likely secondary to worsening dementia. Physical examination otherwise is unremarkable. He is well-appearing and has no significant complaints at this time.Lab evaluation obtained. CBC, coag panel, metabolic panel is unremarkable. CT imaging of the head is unremarkable. Patient be admitted for placement. Patient appears well at this time. Patient does not have any localizing symptoms per family and patient. Family discussed that they're having significant difficulty taking care of him at home and requests long term facility. - Related Data Home Medications Medication Instructions Recorded Confirmed Cholecalciferol [Vitamin D3] 1,000 unit PO DAILY 04/22/18 05/31/18 Lisinopril [Zestril] 20 mg PO DAILY 04/22/18 05/31/18 [place] Carbonate 600 mg PO HS 04/22/18 05/31/18 Melatonin 10 mg PO HS PRN 04/22/18 05/31/18 Mirabegron [Myrbetriq] 25 mg PO HS 04/22/18 05/31/18 Multivitamins, Thera [Multivitamin 1 tab PO DAILY 04/22/18 05/31/18 (formulary)] Primidone [Mysoline] 50 mg PO HS 04/22/18 05/31/18 Rivastigmine 9.5MG/24Hr Patch 1 patch TRANSDERM Q24HR 04/22/18 05/31/18 [Exelon 9.5MG/24Hr Patch] Rosuvastatin Calcium [Crestor] 40 mg PO DAILY 04/22/18 05/31/18 Sotalol [Betapace] 80 mg PO BID 04/22/18 05/31/18 Tamsulosin HCl [Flomax] 0.4 mg PO DAILY 04/22/18 05/31/18 Aspirin EC [Ecotrin Low Dose] 81 mg PO HS 04/24/18 05/31/18 L.acidoph,Paracasei, B.lactis 1 cap PO HS 04/24/18 05/31/18 [Probiotic] Melatonin 10 mg PO HS 04/24/18 05/31/18 Warfarin [Coumadin] 1 mg PO DAILY 04/24/18 05/31/18 Warfarin [Coumadin] 7.5 mg PO DAILY 04/24/18 05/31/18 Allopurinol [Zyloprim] 300 mg PO DAILY 05/31/18 05/31/18 Cyanocobalamin (Vitamin B-12) 1,000 mcg PO DAILY 05/31/18 05/31/18 [Vitamin B-12] Nitrofurantoin Monohyd/M-Cryst 100 mg PO BID 05/31/18 05/31/18 [Macrobid] Nitroglycerin Sl Tabs [Nitrostat] 0.4 mg SUBLINGUAL Q5M PRN 05/31/18 05/31/18 Oxybutynin Chloride 5 mg PO BID 05/31/18 05/31/18 Allergies Allergy/AdvReac Type Severity Reaction Status Date / Time celecoxib [From Celebrex] Allergy Unknown Verified 05/31/18 11:52 codeine Allergy Unknown Verified 05/31/18 11:52 diphenhydramine Allergy Unknown Verified 05/31/18 11:52 [From Benadryl] haloperidol [From Haldol] Allergy Unknown Verified 05/31/18 11:52 NSAIDS (Non-Steroidal Allergy Unknown Verified 05/31/18 11:52 Anti-Inflamma Sulfa (Sulfonamide Allergy Unknown Verified 05/31/18 11:52 Antibiotics) latex AdvReac "SKIN Verified 05/31/18 11:52 REDNESS" Review of Systems ROS Statement: Those systems with pertinent positive or pertinent negative responses have been documented in the HPI. ROS Other: All systems not noted in ROS Statement are negative. Past Medical History Past Medical History: Atrial Fibrillation, Coronary Artery Disease (CAD), Dementia, Hyperlipidemia, Hypertension, Prostate Disorder Additional Past Medical History / Comment(s): pt's stated he has louey bodies dementia, occ tremors.pt was tested x2 for sleep apnea he does'nt have it.past kidney stone when child, hx of gout, uti's bipolar-well maintained, hx cataracts-had sx, intermittent back pain. had a shingels vaccine and pne vaccine in last 5 years History of Any Multi-Drug Resistant Organisms: None Reported Past Surgical History: Coronary Bypass/CABG, Hernia Repair, Pacemaker Additional Past Surgical History / Comment(s): cataract sx, lt inguinal hernia repair, triple vessel cabg, cardioversion Past Anesthesia/Blood Transfusion Reactions: Previous Problems w/ Anesthesia Additional Past Anesthesia/Blood Transfusion Reaction / Comment(s): stated that after cabg sx pt had subtle meory problems attitudes and responses to certain topics were off. stated that after pt wakes from a nap he is confused. Type of Cardiac Device: Permanent Pacemaker Device Placement Date:: 2013 ? Past Psychological History: Bipolar Smoking Status: Former smoker Past Alcohol Use History: Occasional Past Drug Use History: None Reported - Past Family History Mother Family Medical History: Cancer Additional Family Medical History / Comment(s): breast cancer in her 80's, hx bipolar Father Additional Family Medical History / Comment(s): lung problems General Exam Limitations: no limitations Course Vital Signs 05/31/18 10:41 Temperature 97.4 F L Pulse Rate 94 Respiratory 20 Rate Blood Pressure 128/85 O2 Sat by Pulse 97 Oximetry Medical Decision Making - Lab Data Result diagrams: 05/31/18 11:51 05/31/18 11:51 Lab Results 05/31/18 05/31/18 05/31/18 Range/Units 11:51 11:51 11:51 WBC 7.4 (3.8-10.6) k/uL RBC 4.42 (4.30-5.90) m/uL Hgb 13.4 (13.0-17.5) gm/dL Hct 40.5 (39.0-53.0) % MCV 91.8 (80.0-100.0) fL MCH 30.2 (25.0-35.0) pg MCHC 32.9 (31.0-37.0) g/dL RDW 13.8 (11.5-15.5) % Plt Count 185 (150-450) k/uL Neutrophils % 81 % Lymphocytes % 11 % Monocytes % 4 % Eosinophils % 3 % Basophils % 0 % Neutrophils # 5.9 (1.3-7.7) k/uL Lymphocytes # 0.8 L (1.0-4.8) k/uL Monocytes # 0.3 (0-1.0) k/uL Eosinophils # 0.2 (0-0.7) k/uL Basophils # 0.0 (0-0.2) k/uL PT (9.0-12.0) sec INR (<1.2) Sodium 142 (137-145) mmol/L Potassium 4.4 (3.5-5.1) mmol/L Chloride 108 H (98-107) mmol/L Carbon Dioxide 27 (22-30) mmol/L Anion Gap 7 mmol/L BUN 23 H (9-20) mg/dL Creatinine 1.03 (0.66-1.25) mg/dL Est GFR (CKD-EPI)AfAm 82 (>60 ml/min/1.73 sqM) Est GFR (CKD-EPI)NonAf 71 (>60 ml/min/1.73 sqM) Glucose 115 H (74-99) mg/dL Calcium 9.9 (8.4-10.2) mg/dL Magnesium 2.0 (1.6-2.3) mg/dL Ammonia 13 (<30) umol/L 05/31/18 Range/Units 11:51 WBC (3.8-10.6) k/uL RBC (4.30-5.90) m/uL Hgb (13.0-17.5) gm/dL Hct (39.0-53.0) % MCV (80.0-100.0) fL MCH (25.0-35.0) pg MCHC (31.0-37.0) g/dL RDW (11.5-15.5) % Plt Count (150-450) k/uL Neutrophils % % Lymphocytes % % Monocytes % % Eosinophils % % Basophils % % Neutrophils # (1.3-7.7) k/uL Lymphocytes # (1.0-4.8) k/uL Monocytes # (0-1.0) k/uL Eosinophils # (0-0.7) k/uL Basophils # (0-0.2) k/uL PT 12.3 H (9.0-12.0) sec INR 1.2 H (<1.2) Sodium (137-145) mmol/L Potassium (3.5-5.1) mmol/L Chloride (98-107) mmol/L Carbon Dioxide (22-30) mmol/L Anion Gap mmol/L BUN (9-20) mg/dL Creatinine (0.66-1.25) mg/dL Est GFR (CKD-EPI)AfAm (>60 ml/min/1.73 sqM) Est GFR (CKD-EPI)NonAf (>60 ml/min/1.73 sqM) Glucose (74-99) mg/dL Calcium (8.4-10.2) mg/dL Magnesium (1.6-2.3) mg/dL Ammonia (<30) umol/L Disposition Clinical Impression: Weakness Disposition: ADMITTED IP TO THIS HOSP Condition: Good Referrals: Ghanshyam Dias DO [Primary Care Provider] - 1-2 days Decision Time: 13:13
[2018-05-31 12:16] LABS: Basophils % (A) 0 %; Eosinophils # (A) 0.2 k/uL (0-0.7); Eosinophils % (A) 3 %; HCT 40.5 % (39.0-53.0); HGB 13.4 gm/dL (13.0-17.5); Lymphocytes # (A) 0.8 k/uL (1.0-4.8); Lymphocytes % (A) 11 %; MCH 30.2 pg (25.0-35.0); MCHC 32.9 g/dL (31.0-37.0); MCV 91.8 fL (80.0-100.0); Monocytes # (A) 0.3 k/uL (0-1.0); Monocytes % (A) 4 %; Neutrophils # (A) 5.9 k/uL (1.3-7.7); Neutrophils % (A) 81 %; Platelet Count 185 k/uL (150-450); RBC 4.42 m/uL (4.30-5.90); RDW 13.8 % (11.5-15.5); WBC 7.4 k/uL (3.8-10.6)
[2018-05-31 12:20] LABS: INR 1.2 (<1.2); Prothrombin Time 12.3 sec (9.0-12.0)
[2018-05-31 12:24] LABS: Calcium 9.9 mg/dL (8.4-10.2); Potassium 4.4 mmol/L (3.5-5.1)
--- NOTE | 2018-05-31 12:33 | CT ---
EXAMINATION TYPE: CT brain wo con DATE OF EXAM: 05/31/2018 COMPARISON: 04/24/2018 INDICATION: Post op cognitive dysfunction, confusion DLP: 1137.4 mGycm, Automated exposure control for dose reduction was used. CONTRAST: None CT of the brain is performed utilizing 3 mm thick sections through the posterior fossa and 3 mm thick sections through the remaining calvarium. Study is performed within 24 hours of arrival to the hosp ital. No abnormal hyperdensity is present to suggest an acute intracranial hemorrhage. No mass lesion is evident. No acute infarcts are evident. There is mild hypodensity within the deep white matter of the posterio r limbs of the basal ganglion could be related to some mild chronic white matter ischemic type change . This is stable from comparison. Ventricles and sulci are prominent for the patient age. Paranasal sinuses and mastoid air cells within the [id number] are clear. IMPRESSIONS: 1. Atrophy with minimal chronic appearing deep white matter changes.
[2018-05-31] MEDS ORDERED: NALOXONE 0.4 MG/ML 1 ML VIAL IV PRN (13:13)
[2018-05-31] MEDS ORDERED: NITROGLYCERIN SL TABS 0.4 MG TAB SUBLINGUAL PRN (13:15)
[2018-05-31 14:45] LABS: Appearance,Urine Clear (Clear); Bilirubin,Urine Negative (Negative); Blood,Urine Negative (Negative); Color,Urine Yellow; Glucose,Urine (UA) Negative (Negative); Hyaline Casts,Urine 1 /lpf (0-2); Ketones,Urine Negative (Negative); Leukocyte Esterase,Urine Trace (Negative); Mucus,Urine Rare /hpf; Nitrite,Urine Negative (Negative); PH, Urine 6.5 (5.0-8.0); Protein,Urine Negative (Negative); RBC,Urine 9 /hpf (0-5); Specific Gravity,Urine 1.013 (1.001-1.035); Urobilinogen,Urine <2.0 mg/dL (<2.0)
[2018-05-31 15:08] LABS: Amphetamine Screen,Urine Not Detected (NotDetected); Barbiturate Screen,Urine Detected (NotDetected); Benzodiazepines Screen,Urine Not Detected (NotDetected); Cocaine Screen,Urine Not Detected (NotDetected); Methadone Screen, Urine Not Detected (NotDetected); Opiate Screen,Urine Not Detected (NotDetected); Oxycodone Screen, Urine Not Detected (NotDetected); Phencyclidine Screen,Urine Not Detected (NotDetected); Tricyclic Antidepressant,Urine Not Detected (NotDetected); Urn Cannabinoid Scrn Not Detected (NotDetected)
[2018-05-31 15:33] VITALS: BMI 30.5
[2018-05-31] MEDS ORDERED: PRAMIPEXOLE 0.125 MG TAB PO PRN (18:32)
[2018-05-31] MEDS: WARFARIN 1 MG TAB PO SCH (18:35)
[2018-05-31] MEDS: WARFARIN 7.5 MG TAB PO SCH (18:35)
[2018-05-31] MEDS ORDERED: PRAMIPEXOLE 0.25 MG TAB PO PRN (18:46)
[2018-05-31] MEDS ORDERED: NITROFURANTOIN MONOHYD/M-CRYST 100 MG CAP PO SCH ×2 (21:00)
[2018-05-31] MEDS ORDERED: MELATONIN 5 MG TABLET PO SCH (21:00)
[2018-05-31] MEDS ORDERED: PRIMIDONE 25 MG TAB PO SCH (21:00)
[2018-05-31] MEDS: Mirabegron [Myrbetriq] 25 MG PO SCH (22:53)
[2018-05-31] MEDS: ASPIRIN 81 MG PO SCH (22:53)
[2018-05-31] MEDS: PRIMIDONE 50 MG TAB PO SCH (22:53)
[2018-05-31] MEDS: OXYBUTYNIN CHLORIDE 5 MG TAB PO SCH (22:53)
[2018-05-31] MEDS: LITHIUM CARBONATE 300 MG CAP PO SCH (22:53)
[2018-05-31] MEDS: SOTALOL 80 MG TAB PO SCH (22:53)
[2018-05-31] MEDS: ALPRAZolam 0.25 MG TAB PO PRN (22:53)
[2018-05-31] MEDS: LACTOBACILLUS ACIDOPH & BULGAR 1 EACH PACKET PO SCH (22:53)
[2018-05-31] MEDS: PRAMIPEXOLE 0.125 MG TAB PO PRN (23:27)
--- NOTE | 2018-06-01 05:31 | HP ---
HISTORY AND PHYSICAL CHIEF COMPLAINTS: Confusion. HISTORY OF PRESENT ILLNESS: This 78-year-old gentleman with a past medical history of multiple medical problems including history atrial ablation, dementia, hypertension, hyperlipidemia, apparently Lewy body dementia, hematuria, history of bladder cancer, history of CAD and CABG being for Dr. Dias in the outpatient setting, recent diagnosis of bladder cancer BCG treatment. The patient also has incontinence but unable to comply with the treatment and currently patient also has UTI and the patient was given a prescription for Macrobid from the primary care physician's office. The patient is currently having visual hallucinations and confused. Patient taken to [facility] and was admitted for further evaluation and treatment. There is no history of fever, rigors. No headache, loss of consciousness, seizures. PAST HISTORY: Atrial fibrillation, CAD, dementia, hypertension, Lewy body disease. HOME MEDICATIONS: 1. Melatonin 10 mg q.h.s. 2. Multivitamins 1 p.o. daily. 3. Probiotic. 4. Vitamin D 3000 daily. 5. Ecotrin 81 mg q.h.s. 6. Vitamin B12 1000 mcg p.o. daily. 7. Zyloprim 300 mg. 8. Flomax 0.4 daily. 9. Oxybutynin 5 mg p.o. b.i.d. 10.Zestril 20 mg daily. 11.Betapace 80 mg p.o. b.i.d. 12.Crestor 40 mg p.o. daily. 13.Exelon 1 patch subcu. 14.Mysoline 50 mg q.h.s. 15.Myrbetriq 25 mg q.h.s. 16.Nitrostat 0.4 sublingual p.r.n. 18.Coumadin 7.5 mg daily. 20.Macrobid 100 mg p.o. b.i.d. ALLERGIES: CELEBREX, CODEINE, BENADRYL, HALDOL, NSAIDS, SULFA, LATEX. FAMILY HISTORY: History of breast cancer, history of bipolar. SOCIAL HISTORY: Remote history of smoking. REVIEW OF SYSTEMS: Could not be taken as patient is confused. PHYSICAL EXAM: The patient is conscious, confused. Pulse 50, blood pressure 130/50, respirations 16, temperature 98 degrees, pulse ox 98% room air. HEENT Conjunctivae normal. Oral mucosa moist. NECK No jugular venous distention. No lymph node enlargement. CARDIOVASCULAR: S1, S2 muffled. RESPIRATORY: Diminished breath sounds at the bases. No rhonchi. No crackles. ABDOMEN Soft, nontender. No mass palpable. LEGS No edema. No swelling. NERVOUS SYSTEM: Higher functions as mentioned earlier. Moves all 4 limbs. Unable to cooperate with full exam. Patient is confused. SKIN No ulcers. JOINTS No active arthropathy. LABS: At this time shows WBC 7, hemoglobin 13.4, INR is 1.2. UA possibly UTI. ASSESSMENT: 1. Possible acute urinary tract infection with sepsis. 2. Change in mental status, acute metabolic encephalopathy, acute on chronic. 3. History of dementia, Lewy body. 4. History atrial fibrillation. 5. Coronary artery disease. 6. Hypertension. 7. Hyperlipidemia. 8. History of prostate cancer, recently diagnosed for BCG treatment. 9. History of recent urinary tract infection with failure of outpatient treatment. 10.History of CAD, CABG. 11.History of pacemaker. 12.History of bipolar. 13.FULL CODE. RECOMMENDATIONS: In this 78-year-old gentleman who presented with multiple medical issues, at this time I recommend to continue current management and continue symptomatic treatment. I will initiate broad-spectrum IV antibiotics. Follow the cultures, PT OT evaluation. Otherwise, symptomatic treatment will be provided. Prognosis guarded because of multiple complex medical issues. Further recommendations to follow. See orders for further details. Monitor labs closely. MMODL / IJN: [id number] / MTDD
[2018-06-01 07:56] LABS: Basophils % (A) 0 %; Eosinophils # (A) 0.3 k/uL (0-0.7); Eosinophils % (A) 4 %; HCT 43.4 % (39.0-53.0); HGB 13.7 gm/dL (13.0-17.5); Lymphocytes % (A) 15 %; MCHC 31.5 g/dL (31.0-37.0); Mean Platelet Volume 6.9; Monocytes # (A) 0.3 k/uL (0-1.0); Monocytes % (A) 5 %; Neutrophils # (A) 5.3 k/uL (1.3-7.7); Neutrophils % (A) 75 %; Platelet Count 199 k/uL (150-450); RBC 4.72 m/uL (4.30-5.90); RDW 13.9 % (11.5-15.5); WBC 7.1 k/uL (3.8-10.6)
[2018-06-01 08:11] LABS: Anion Gap 8 mmol/L; Blood Urea Nitrogen 19 mg/dL (9-20); Calcium 10.4 mg/dL (8.4-10.2); Carbon Dioxide 27 mmol/L (22-30); Chloride 108 mmol/L (98-107); Glucose 125 mg/dL (74-99); Potassium 4.4 mmol/L (3.5-5.1); Sodium 143 mmol/L (137-145)
[2018-06-01 08:15] LABS: INR 1.4 (<1.2); Prothrombin Time 14.2 sec (9.0-12.0)
[2018-06-01] MEDS: TAMSULOSIN 0.4 MG CAP.ER.24H PO SCH (09:15)
[2018-06-01] MEDS: PANTOPRAZOLE 40 MG TABLET PO SCH (09:15)
[2018-06-01] MEDS: ATORVASTATIN 80 MG TAB PO SCH (09:15)
[2018-06-01] MEDS: OXYBUTYNIN CHLORIDE 5 MG TAB PO SCH ×2 (09:15→21:47)
[2018-06-01] MEDS: CYANOCOBALAMIN 500 MCG TAB PO SCH ×2 (09:15→14:12)
[2018-06-01] MEDS: CHOLECALCIFEROL 1,000 UNIT TAB PO SCH (09:15)
[2018-06-01] MEDS: ALLOPURINOL 300 MG TAB PO SCH (09:15)
[2018-06-01] MEDS: LISINOPRIL 20 MG TAB PO SCH (09:16)
[2018-06-01] MEDS: FOLIC ACID 1 MG TAB PO SCH (14:12)
[2018-06-01] MEDS: MULTIVITAMINS, THERA 1 EACH TAB PO SCH (14:12)
[2018-06-01] MEDS: SOTALOL 80 MG TAB PO SCH ×2 (14:12→21:48)
[2018-06-01] MEDS: THIAMINE 100 MG TAB PO SCH (14:18)
[2018-06-01] MEDS: RIVASTIGMINE 9.5MG/24HR PATCH TRANSDERM SCH (14:24)
--- NOTE | 2018-06-01 16:01 | XR ---
EXAMINATION TYPE: XR wrist limited LT DATE OF EXAM: 06/01/2018 CLINICAL HISTORY: Wrist pain TECHNIQUE: 2 views of left wrist were obtained. COMPARISON: None FINDINGS: There is no acute fracture/dislocation. The joint spaces in the wrist appear within hortensia l limits. The overlying soft tissue appears unremarkable. IMPRESSION: There is no acute fracture or dislocation in the left wrist.
--- NOTE | 2018-06-01 16:20 | PN ---
PROGRESS NOTE DATE OF SERVICE: 06/01/2018 This 78-year-old gentleman admitted with confusion, also had a possible UTI with sepsis. Patient being closely monitored. Receiving IV antibiotics. No chest pain. No palpitations. Sitter is in the room. CT scan of the brain noted. EXAM: Patient is conscious, confused. Pulse 50, blood pressure is 108/53, respiration 17, temperature 97.4, pulse ox 98% on room air. HEENT: Conjunctivae normal. Oral mucosa moist. NECK: No jugular venous distention. No lymph node enlargement. CARDIOVASCULAR: S1, S2. RESPIRATORY: Diminished breath sounds at the bases. No rhonchi, no crackles. ABDOMEN: Soft, nontender. LEGS: No swelling. NERVOUS SYSTEM: Diffusely weak. LABS: WBC 7.2, hemoglobin 13.2, INR 1.4, calcium is 10.4. UA noted and cultures are pending at this time. ASSESSMENT: 1. Possible acute urinary tract infection with sepsis present on admission. 2. Change in mental status, acute metabolic encephalopathy, acute on chronic, possibly secondary to sepsis. 3. History of dementia, Lewy body. 4. History atrial fibrillation. 5. History of coronary artery disease. 6. Hypertension. 7. Hyperlipidemia. 8. History of prostate cancer, recently diagnosed for BCG treatment. 9. History of recent urinary tract infection with failure of outpatient treatment. 10.History of coronary artery disease, coronary artery bypass graft. 11.History of pacemaker. 12.History of bipolar. 13.FULL CODE. RECOMMENDATIONS AND DISCUSSION: This 78-year-old gentleman who presented with multiple complex medical issues, will monitor the patient closely, continue the current management, continue IV antibiotics. Symptomatic treatment will be provided. Otherwise, would also recommend continue the rest of the medications. Further recommendations to follow. Will monitor the PT/INR closely. MMODL / IJN: [id number] /
[2018-06-01] MEDS: WARFARIN 7.5 MG TAB PO SCH (18:38)
[2018-06-01] MEDS: WARFARIN 1 MG TAB PO SCH (18:38)
[2018-06-01] MEDS: PRAMIPEXOLE 0.125 MG TAB PO PRN (21:09)
[2018-06-01] MEDS: ASPIRIN 81 MG PO SCH (21:09)
[2018-06-01] MEDS: PRIMIDONE 50 MG TAB PO SCH (21:47)
[2018-06-01] MEDS: LACTOBACILLUS ACIDOPH & BULGAR 1 EACH PACKET PO SCH (21:48)
[2018-06-01] MEDS: Mirabegron [Myrbetriq] 25 MG PO SCH (21:48)
[2018-06-01] MEDS: LITHIUM CARBONATE 300 MG CAP PO SCH (21:48)
[2018-06-02 07:25] LABS: Basophils % (A) 0 %; Eosinophils # (A) 0.2 k/uL (0-0.7); Eosinophils % (A) 4 %; HCT 41.2 % (39.0-53.0); HGB 13.4 gm/dL (13.0-17.5); Lymphocytes % (A) 15 %; MCH 30.3 pg (25.0-35.0); MCHC 32.6 g/dL (31.0-37.0); Mean Platelet Volume 7.8; Monocytes # (A) 0.3 k/uL (0-1.0); Monocytes % (A) 4 %; Neutrophils % (A) 76 %; Platelet Count 166 k/uL (150-450); RBC 4.43 m/uL (4.30-5.90); RDW 14.2 % (11.5-15.5); WBC 6.5 k/uL (3.8-10.6)
[2018-06-02 07:43] LABS: Anion Gap 7 mmol/L; Blood Urea Nitrogen 23 mg/dL (9-20); Calcium 10.2 mg/dL (8.4-10.2); Carbon Dioxide 24 mmol/L (22-30); Chloride 109 mmol/L (98-107); Glucose 120 mg/dL (74-99); Potassium 4.5 mmol/L (3.5-5.1); Sodium 140 mmol/L (137-145)
[2018-06-02 07:47] LABS: INR 1.3 (<1.2); Prothrombin Time 13.7 sec (9.0-12.0)
[2018-06-02] MEDS: RIVASTIGMINE 9.5MG/24HR PATCH TRANSDERM SCH (09:07)
[2018-06-02] MEDS: CHOLECALCIFEROL 1,000 UNIT TAB PO SCH (09:07)
[2018-06-02] MEDS: FOLIC ACID 1 MG TAB PO SCH (09:07)
[2018-06-02] MEDS: SOTALOL 80 MG TAB PO SCH ×2 (09:07→20:42)
[2018-06-02] MEDS: MULTIVITAMINS, THERA 1 EACH TAB PO SCH (09:08)
[2018-06-02] MEDS: TAMSULOSIN 0.4 MG CAP.ER.24H PO SCH (09:08)
[2018-06-02] MEDS: ATORVASTATIN 80 MG TAB PO SCH (09:08)
[2018-06-02] MEDS: ALLOPURINOL 300 MG TAB PO SCH (09:08)
[2018-06-02] MEDS: PANTOPRAZOLE 40 MG TABLET PO SCH (09:08)
[2018-06-02] MEDS: THIAMINE 100 MG TAB PO SCH (09:08)
[2018-06-02] MEDS: LISINOPRIL 20 MG TAB PO SCH (09:08)
[2018-06-02] MEDS: OXYBUTYNIN CHLORIDE 5 MG TAB PO SCH ×2 (09:14→20:41)
[2018-06-02] MEDS ORDERED: WARFARIN 10 MG TAB PO SCH (18:00)
[2018-06-02] MEDS: ACETAMINOPHEN TAB 500 MG TAB PO PRN (18:15)
--- NOTE | 2018-06-02 18:40 | PN ---
PROGRESS NOTE DATE OF SERVICE: 06/02/2018 This is a 78-year-old gentleman who was admitted with acute UTI and sepsis who is being closely monitored at this time. The cultures are negative so far. The patient is on and off confused. Patient is complaining of generalized weakness. Patient also had Lewy body dementia as well. PT is evaluating the patient for possible ECF rehab. No chest pain. No palpitations. No fever. EXAM: The patient is conscious but confused. Pulse 50, blood pressure 125/60, respirations 16, temperature 97.2, pulse ox 100 percent room air. HEENT: Conjunctivae normal. Oral mucosa moist. NECK: No jugular venous distention. No lymph node enlargement. CARDIOVASCULAR: S1, S2. RESPIRATORY: Diminished breath sounds at the bases. A few scattered rhonchi and crackles. ABDOMEN: Soft, nontender. LEGS: No swelling. NERVOUS SYSTEM: Mild diffuse weakness. No focal deficits. LAB STUDIES: WBC 6.2, hemoglobin 13.9, INR 1.3, glucose 120. Cultures are negative as mentioned. ASSESSMENT: 1. Possible acute urinary tract infection with sepsis, present on admission. 2. Change in mental status, acute metabolic encephalopathy, acute on chronic possibly secondary to sepsis. 3. History of dementia, Lewy body. 4. History of atrial fibrillation. 5. History of coronary artery disease. 6. Hypertension. 7. Hyperlipidemia. 8. History of prostate cancer, recently diagnosed for BCG treatment. 9. History of recent urinary tract infection with failure of outpatient treatment. 10.History of coronary artery disease, coronary artery bypass graft. 11.History of pacemaker. 12.History of bipolar. 13.Gait dysfunction. 14.FULL CODE. RECOMMENDATIONS AND DISCUSSION: Recommend to continue current medications, continue symptomatic treatment. Otherwise, I had a detailed discussion with the at this time. The patient's functional capacity is declining rapidly. At this time I recommend PT and OT evaluation, possible ECF rehab. Continue the antibiotics. Cultures are negative so far. Otherwise, we will continue to monitor. Guarded prognosis. Further recommendations to follow. PT/INR will be closely monitored. YINKA / PADILLA: [id number] /
[2018-06-02] MEDS: WARFARIN 10 MG TAB PO SCH (18:58)
[2018-06-02] MEDS: LITHIUM CARBONATE 300 MG CAP PO SCH (20:41)
[2018-06-02] MEDS: PRIMIDONE 50 MG TAB PO SCH (20:41)
[2018-06-02] MEDS: ASPIRIN 81 MG PO SCH (20:41)
[2018-06-02] MEDS: LACTOBACILLUS ACIDOPH & BULGAR 1 EACH PACKET PO SCH (20:42)
[2018-06-02] MEDS: Mirabegron [Myrbetriq] 25 MG PO SCH (20:43)
[2018-06-03] MEDS: CHOLECALCIFEROL 1,000 UNIT TAB PO SCH ×2 (07:27→07:28)
[2018-06-03] MEDS: ALLOPURINOL 300 MG TAB PO SCH (07:28)
[2018-06-03] MEDS: PANTOPRAZOLE 40 MG TABLET PO SCH (07:28)
[2018-06-03] MEDS: LISINOPRIL 20 MG TAB PO SCH (07:28)
[2018-06-03] MEDS: ATORVASTATIN 80 MG TAB PO SCH (07:28)
[2018-06-03] MEDS: SOTALOL 80 MG TAB PO SCH ×2 (07:28→21:21)
[2018-06-03] MEDS: OXYBUTYNIN CHLORIDE 5 MG TAB PO SCH ×2 (07:28→21:21)
[2018-06-03] MEDS: CYANOCOBALAMIN 500 MCG TAB PO SCH (07:28)
[2018-06-03] MEDS: TAMSULOSIN 0.4 MG CAP.ER.24H PO SCH (07:28)
[2018-06-03] MEDS: RIVASTIGMINE 9.5MG/24HR PATCH TRANSDERM SCH (07:29)
[2018-06-03 09:47] LABS: Basophils % (A) 0 %; Eosinophils # (A) 0.3 k/uL (0-0.7); Eosinophils % (A) 4 %; HGB 14.2 gm/dL (13.0-17.5); Lymphocytes # (A) 1.1 k/uL (1.0-4.8); Lymphocytes % (A) 15 %; MCH 29.7 pg (25.0-35.0); MCHC 32.2 g/dL (31.0-37.0); MCV 92.2 fL (80.0-100.0); Mean Platelet Volume 7.8; Monocytes # (A) 0.3 k/uL (0-1.0); Monocytes % (A) 5 %; Neutrophils # (A) 5.6 k/uL (1.3-7.7); Neutrophils % (A) 76 %; Platelet Count 176 k/uL (150-450); RBC 4.78 m/uL (4.30-5.90); RDW 14.1 % (11.5-15.5); WBC 7.4 k/uL (3.8-10.6)
[2018-06-03 09:52] LABS: Calcium 10.3 mg/dL (8.4-10.2); Potassium 4.6 mmol/L (3.5-5.1)
[2018-06-03 10:12] LABS: INR 1.3 (<1.2); Prothrombin Time 13.3 sec (9.0-12.0)
[2018-06-03] MEDS: MULTIVITAMINS, THERA 1 EACH TAB PO SCH (11:42)
[2018-06-03] MEDS: THIAMINE 100 MG TAB PO SCH (11:42)
[2018-06-03] MEDS: FOLIC ACID 1 MG TAB PO SCH (11:42)
--- NOTE | 2018-06-03 14:20 | CDI ---
Documentation Clarification Form Date: 06/03/2018 2:04:33 PM From: Griselda Hall RN CCDS Admit Date: 05/31/2018 1:13:00 PM Patient Name: Nathaniel Jones Visit Number: [id number] Discharge Date: ATTENTION: The Clinical Documentation Specialists (CDI) and [facility] Coding Staff appreciate your assistance in clarifying documentation. Please respond to the clarification below the line at the bottom and electronically sign. The CDI & [facility] Coding staff will review the response and follow-up if needed. Please note: Queries are made part of the Legal Health Record. If you have any questions, please contact the author of this message via ITS. Dr. Domi Hernandez The patient presented with weakness and worsening dementia History/Risk Factors: 78 year old male presents to the ED with worsening dementia. Recent UTI and diagnosis of possible bladder cancer. Clinical Indicators: WBC 7.4 Vitals signs on admission: 128/85 94 97.4 97% ra 20 Other Clinical Indicators: UA Trace Leukocytes esterase, 9 Wbc , Rbc 9, Hyaline casts 1, Urine mucus Rare Treatment: Antibiotics: Ceftraxone ivpb In your professional opinion, please clarify if these findings signify one of the following conditions, whether the condition is POA or Ruled Out: * Sepsis Ruled Out. * Sepsis POA * Other, please specify * Unable to determine SIRS Criteria (2 or more of the following may indicate SIRS): -Temperature < 96.8F (36C) or > 101.0F (38.3C) -Heart Rate > 90 bpm -Respiratory Rate > 20 breaths/min or PaCO2 < 32 mmHg -White Blood Cell Count > 12,000 or < 4,000 cells/mm3 or > 10% bands -Lactate >2.0 mmol/L (>4.0 is equivalent to septic shock) (Last Revision: July 2017) Unable to determine MTDD
--- NOTE | 2018-06-03 14:29 | CDI ---
Documentation Clarification Form Date: 06/03/2018 From: Griselda Hall RN CCDS Admit Date: 05/31/2018 1:13:00 PM Patient Name: Nathaniel Jones Visit Number: [id number] Discharge Date: ATTENTION: The Clinical Documentation Specialists (CDI) and [facility] Coding Staff appreciate your assistance in clarifying documentation. Please respond to the clarification below the line at the bottom and electronically sign. The CDI & [facility] Coding staff will review the response and follow-up if needed. Please note: Queries are made part of the Legal Health Record. If you have any questions, please contact the author of this message via ITS. Dr. Domi Hernandez Atrial Fibrillation is documented in the H & P and in your progress notes History/Risk Factors: 78 year old male with a history of atrial fibrillation, presents for weakness. Clinical Indicators: PT 12.3, INR 1.2, Treatment: Coumadin In your professional opinion, can you please clarify the type of Atrial Fibrillation, if known? * Chronic/Permanent * Paroxysmal * Persistent * Other, please specify * Unable to determine (Last Revision: July 2017) Persistent MTDD
[2018-06-03] MEDS ORDERED: WARFARIN 7.5 MG TAB PO SCH ×2 (18:00)
[2018-06-03] MEDS ORDERED: WARFARIN 1 MG TAB PO SCH ×2 (18:00)
--- NOTE | 2018-06-03 19:45 | PN ---
PROGRESS NOTE DATE OF SERVICE: 04/02/2019 This 78-year-old gentleman who was admitted with possible acute urinary tract infection with sepsis, still confused. No chest pain. No palpitations. No fever. ECF rehab is being investigated at this time. No chest pain. No palpitation. EXAM: Alert, oriented x3. Pulse 51, blood pressure 102/49, respiratory 20, temperature 97.4, pulse ox 96% on room air. HEENT: Conjunctivae normal. NECK: No jugular venous distention. CARDIOVASCULAR: S1, S2 muffled. RESPIRATORY: Breath sounds diminished in the bases. No rhonchi. No crackles. ABDOMEN: Soft, nontender. LEGS: No edema. NERVOUS SYSTEM: Mild diffuse weakness. LAB: The calcium is 10.3, INR 1.3. ASSESSMENT: 1. Acute urinary tract infection with possible sepsis, present on admission. 2. Change in mental status, acute metabolic encephalopathy, acute on chronic, possibly secondary to sepsis. 3. History of dementia, Lewy body. 4. History of atrial fibrillation. 5. History of coronary artery disease. 6. Hypertension. 7. Hyperlipidemia. 8. History of prostate cancer, recently diagnosed for BCG treatment in the future. 9. History of recent urinary tract infection with failure of outpatient treatment. 10.History of coronary artery disease, CABG. 11.History of pacemaker. 12.History of bipolar. 13.Gait dysfunction. 14.FULL CODE. RECOMMENDATIONS AND DISCUSSION: I recommend to continue current management, symptomatic treatment as mentioned earlier. Cultures are negative so far. Continue the rest of evaluation. Possible ECF rehab. Guarded prognosis because of multiple complex medical issues. Further recommendations to follow. The patient may be discharged to ECF in the next 24 to 48 hours. Further recommendations to follow. MMODL / IJN: [id number] / MTDDarinel
[2018-06-03] MEDS: Mirabegron [Myrbetriq] 25 MG PO SCH (21:13)
[2018-06-03] MEDS: ASPIRIN 81 MG PO SCH (21:20)
[2018-06-03] MEDS: LACTOBACILLUS ACIDOPH & BULGAR 1 EACH PACKET PO SCH (21:20)
[2018-06-03] MEDS: PRIMIDONE 50 MG TAB PO SCH (21:21)
[2018-06-03] MEDS: LITHIUM CARBONATE 300 MG CAP PO SCH (21:21)
[2018-06-03] MEDS: ACETAMINOPHEN TAB 500 MG TAB PO PRN (21:22)
[2018-06-04] MEDS: PRAMIPEXOLE 0.125 MG TAB PO PRN (03:26)
[2018-06-04] MEDS: CYANOCOBALAMIN 500 MCG TAB PO SCH (08:22)
[2018-06-04] MEDS: RIVASTIGMINE 9.5MG/24HR PATCH TRANSDERM SCH (08:22)
[2018-06-04] MEDS: ALLOPURINOL 300 MG TAB PO SCH (08:22)
[2018-06-04] MEDS: PANTOPRAZOLE 40 MG TABLET PO SCH (08:22)
[2018-06-04] MEDS: LISINOPRIL 20 MG TAB PO SCH (08:22)
[2018-06-04] MEDS: ATORVASTATIN 80 MG TAB PO SCH (08:22)
[2018-06-04] MEDS: OXYBUTYNIN CHLORIDE 5 MG TAB PO SCH ×2 (08:22→22:15)
[2018-06-04] MEDS: TAMSULOSIN 0.4 MG CAP.ER.24H PO SCH (08:22)
[2018-06-04] MEDS: CHOLECALCIFEROL 1,000 UNIT TAB PO SCH (08:23)
[2018-06-04] MEDS: SOTALOL 80 MG TAB PO SCH ×2 (08:26→22:27)
[2018-06-04 10:17] LABS: INR 1.6 (<1.2); Prothrombin Time 16.3 sec (9.0-12.0)
[2018-06-04 10:26] LABS: Calcium 10.1 mg/dL (8.4-10.2); Potassium 4.5 mmol/L (3.5-5.1)
[2018-06-04 10:49] LABS: Basophils % (A) 1 %; Eosinophils # (A) 0.3 k/uL (0-0.7); Eosinophils % (A) 5 %; HCT 41.7 % (39.0-53.0); Lymphocytes % (A) 16 %; MCHC 31.3 g/dL (31.0-37.0); MCV 92.7 fL (80.0-100.0); Monocytes # (A) 0.3 k/uL (0-1.0); Monocytes % (A) 5 %; Neutrophils # (A) 4.3 k/uL (1.3-7.7); Neutrophils % (A) 71 %; Platelet Count 154 k/uL (150-450); WBC 5.9 k/uL (3.8-10.6)
[2018-06-04] MEDS: THIAMINE 100 MG TAB PO SCH (12:42)
[2018-06-04] MEDS: FOLIC ACID 1 MG TAB PO SCH (12:42)
[2018-06-04] MEDS: MULTIVITAMINS, THERA 1 EACH TAB PO SCH (12:42)
[2018-06-04] MEDS: WARFARIN 10 MG TAB PO SCH (18:10)
[2018-06-04 20:38] VITALS: PULSE 50
[2018-06-04] MEDS: ASPIRIN 81 MG PO SCH (22:14)
[2018-06-04] MEDS: PRIMIDONE 50 MG TAB PO SCH (22:16)
[2018-06-04] MEDS: LITHIUM CARBONATE 300 MG CAP PO SCH (22:17)
[2018-06-04] MEDS: ACETAMINOPHEN TAB 500 MG TAB PO PRN (22:19)
[2018-06-04] MEDS: LACTOBACILLUS ACIDOPH & BULGAR 1 EACH PACKET PO SCH (22:23)
[2018-06-04] MEDS: Mirabegron [Myrbetriq] 25 MG PO SCH (22:25)
[2018-06-05] MEDS: ALPRAZolam 0.25 MG TAB PO PRN (04:54)
[2018-06-05 05:25] VITALS: BP 135/64; RESP 18; TEMP 97.6
[2018-06-05] MEDS: LISINOPRIL 20 MG TAB PO SCH (08:06)
[2018-06-05] MEDS: RIVASTIGMINE 9.5MG/24HR PATCH TRANSDERM SCH (08:07)
[2018-06-05] MEDS: TAMSULOSIN 0.4 MG CAP.ER.24H PO SCH (08:07)
[2018-06-05] MEDS: ALLOPURINOL 300 MG TAB PO SCH (08:07)
[2018-06-05] MEDS: CHOLECALCIFEROL 1,000 UNIT TAB PO SCH (08:07)
[2018-06-05] MEDS: ATORVASTATIN 80 MG TAB PO SCH (08:07)
[2018-06-05] MEDS: PANTOPRAZOLE 40 MG TABLET PO SCH (08:07)
[2018-06-05] MEDS: SOTALOL 80 MG TAB PO SCH (08:08)
[2018-06-05] MEDS: OXYBUTYNIN CHLORIDE 5 MG TAB PO SCH (08:08)
[2018-06-05] MEDS: CYANOCOBALAMIN 500 MCG TAB PO SCH (08:08)
[2018-06-05 09:03] LABS: Basophils # (A) 0.1 k/uL (0-0.2); Basophils % (A) 1 %; Eosinophils # (A) 0.4 k/uL (0-0.7); Eosinophils % (A) 6 %; HCT 45.6 % (39.0-53.0); Lymphocytes # (A) 1.1 k/uL (1.0-4.8); Lymphocytes % (A) 16 %; MCH 28.7 pg (25.0-35.0); MCHC 30.8 g/dL (31.0-37.0); MCV 93.3 fL (80.0-100.0); Monocytes # (A) 0.3 k/uL (0-1.0); Monocytes % (A) 4 %; Neutrophils # (A) 5.2 k/uL (1.3-7.7); Neutrophils % (A) 72 %; Platelet Count 172 k/uL (150-450); RBC 4.89 m/uL (4.30-5.90); WBC 7.2 k/uL (3.8-10.6)
[2018-06-05 09:12] LABS: INR 1.5 (<1.2); Prothrombin Time 15.1 sec (9.0-12.0)
[2018-06-05 09:43] LABS: Calcium 10.6 mg/dL (8.4-10.2); Potassium 4.8 mmol/L (3.5-5.1)
[2018-06-05] MEDS: MULTIVITAMINS, THERA 1 EACH TAB PO SCH (11:40)
[2018-06-05] MEDS: FOLIC ACID 1 MG TAB PO SCH (11:40)
[2018-06-05] MEDS: THIAMINE 100 MG TAB PO SCH (11:40)
--- NOTE | 2018-06-05 11:52 | P.DS ---
Providers Date of admission: 05/31/18 13:13 Expected date of discharge: 06/05/18 Attending physician: Diana Fatima Final Diagnoses Primary care physician: Ghanshyam Dias Hospital Course: Final Diagnoses: -Acute UTI , present on admission, sepsis ruled out -Change in mental status, acute metabolic encephalopathy, acute on chronic possibly secondary to infection -Dementia, Lewey Body -CHronic afib -CAD, history of CABG, pacemaker -HTN -Hyperlipidemia -History of bladder cancer, recently diagnosed, BCG treatment in the future -Recent UTI with failure of outpatient treatment -History of bipolar -Gait dysfunction Hospital course: This is a 78-year-old gentleman admitted with possible acute UTI with sepsis, and multiple other medical issues. Maintained on IV antibiotics, gentle IV fluid hydration. Afebrile, normal WBC. Blood in urine cultures negative. Significant clinical improvement. Patient is being discharged to [facility], in a stable condition with guarded prognosis. EXAM: General: Alert and oriented 3, no acute distress. HEENT: Conjunctiva normal. Neck: Supple, no JVD CV: Muffled S1 and S2, no edema .RESPIRATORY: Bilateral bases diminished. ABD: Soft, nondistended, nontender, positive bowel sounds. NERVOUS: Mild diffuse weakness. The impression and plan of care has been dictated as directed. : I performed a history and examination of this patient, discussed the same with the dictator. I agree with the dictator's note ,documented as a scribe. Any additional findings or plans will be noted. Time taken: 35 minutes Patient Condition at Discharge: Stable Plan - Discharge Summary Discharge Rx Participant: No New Discharge Prescriptions: New Allopurinol [Zyloprim] 300 mg PO DAILY tab Cyanocobalamin [Vitamin B-12] 1,000 mcg PO DAILY tab Folic Acid 1 mg PO DAILY@1200 tab Pantoprazole [Protonix] 40 mg PO AC-BRKFST tablet. Rivastigmine 9.5MG/24Hr Patch [Exelon 9.5MG/24Hr Patch] 1 patch TRANSDERM Q24HR patch Thiamine [Vitamin B-1] 100 mg PO DAILY@1200 tab Cefuroxime Axetil [Ceftin] 500 mg PO BID #10 tab Continue Primidone [Mysoline] 50 mg PO HS Melatonin 10 mg PO HS PRN PRN Reason: Insomnia Sotalol [Betapace] 80 mg PO BID [place] Carbonate 600 mg PO HS Tamsulosin HCl [Flomax] 0.4 mg PO DAILY Rosuvastatin Calcium [Crestor] 40 mg PO DAILY Lisinopril [Zestril] 20 mg PO DAILY Multivitamins, Thera [Multivitamin (formulary)] 1 tab PO DAILY L.acidoph,Paracasei, B.lactis [Probiotic] 1 cap PO HS Aspirin EC [Ecotrin Low Dose] 81 mg PO HS Nitroglycerin Sl Tabs [Nitrostat] 0.4 mg SUBLINGUAL Q5M PRN PRN Reason: Chest Pain Warfarin [Coumadin] 10 mg PO SUTUTHSA Warfarin [Coumadin] 1 mg PO MOWEFR Warfarin [Coumadin] 7.5 mg PO MOWEFR Mirabegron [Myrbetriq] 50 mg PO HS Cholecalciferol (Vitamin D3) [Vitamin D3] 2,000 unit PO DAILY Pramipexole [Mirapex] 1 - 2 mg PO DIRECTED [place]-3 50mg 50 mg PO BID Discontinued Melatonin 10 mg PO HS Nitrofurantoin Monohyd/M-Cryst [Macrobid] 100 mg PO BID Rivastigmine [Rivastigmine 4.6MG/24Hr] 4.6 mg TRANSDERM Q24H Discharge Medication List Lisinopril [Zestril] 20 mg PO DAILY 04/22/18 [History] [place] Carbonate 600 mg PO HS 04/22/18 [History] Melatonin 10 mg PO HS PRN 04/22/18 [History] Multivitamins, Thera [Multivitamin (formulary)] 1 tab PO DAILY 04/22/18 [History ] Primidone [Mysoline] 50 mg PO HS 04/22/18 [History] Rosuvastatin Calcium [Crestor] 40 mg PO DAILY 04/22/18 [History] Sotalol [Betapace] 80 mg PO BID 04/22/18 [History] Tamsulosin HCl [Flomax] 0.4 mg PO DAILY 04/22/18 [History] Aspirin EC [Ecotrin Low Dose] 81 mg PO HS 04/24/18 [History] L.acidoph,Paracasei, B.lactis [Probiotic] 1 cap PO HS 04/24/18 [History] Nitroglycerin Sl Tabs [Nitrostat] 0.4 mg SUBLINGUAL Q5M PRN 05/31/18 [History] Cholecalciferol (Vitamin D3) [Vitamin D3] 2,000 unit PO DAILY 06/02/18 [History] Mirabegron [Myrbetriq] 50 mg PO HS 06/02/18 [History] [place]-3 50mg 50 mg PO BID 06/02/18 [History] Pramipexole [Mirapex] 1 - 2 mg PO DIRECTED 06/02/18 [History] Warfarin [Coumadin] 1 mg PO MOWEFR 06/02/18 [History] Warfarin [Coumadin] 7.5 mg PO MOWEFR 06/02/18 [History] Warfarin [Coumadin] 10 mg PO SUTUTHSA 06/02/18 [History] Allopurinol [Zyloprim] 300 mg PO DAILY tab 06/05/18 [Rx] Cefuroxime Axetil [Ceftin] 500 mg PO BID #10 tab 06/05/18 [Rx] Cyanocobalamin [Vitamin B-12] 1,000 mcg PO DAILY tab 06/05/18 [Rx] Folic Acid 1 mg PO DAILY@1200 tab 06/05/18 [Rx] Pantoprazole [Protonix] 40 mg PO AC-BRKFST tablet. 06/05/18 [Rx] Rivastigmine 9.5MG/24Hr Patch [Exelon 9.5MG/24Hr Patch] 1 patch TRANSDERM Q24HR patch 06/05/18 [Rx] Thiamine [Vitamin B-1] 100 mg PO DAILY@1200 tab 06/05/18 [Rx] Follow up Appointment(s)/Referral(s): Asher De La Cruz MD [REFERRING] - 3 Days (While at subacute rehab) Ghasnhyam Dias DO [Primary Care Provider] - 1 Week (After DC from subacute rehab) Activity/Diet/Wound Care/Special Instructions: [facility] PT/INR on CBC,bmp in 3 days DIet: cardiac Activity: as tolerated Discharge Disposition: TRANSFER TO SNF/ECF
== END 2018-06-05 14:45 | DRG 689 ==
LOC: EC 10:30 → 3NMEDONC 13:13 → OBSVTOIN 13:13 → 3NMEDONC 15:05
PROVIDERS: ADMIT Internal Medicine; ATTEND Internal Medicine
DX: N39.0 Urinary tract infection, site not specified (principal); G93.41 Metabolic encephalopathy; I48.1 Persistent atrial fibrillation; G31.83 Neurocognitive disorder with Lewy bodies; F02.80 Dementia in other diseases classified elsewhere, unspecified severity, without behavioral disturbance, psychotic disturbance, mood disturbance, and anxiety; C67.9 Malignant neoplasm of bladder, unspecified; R32 Unspecified urinary incontinence; I25.10 Atherosclerotic heart disease of native coronary artery without angina pectoris; I10 Essential (primary) hypertension; E78.5 Hyperlipidemia, unspecified; Z87.442 Personal history of urinary calculi; M10.9 Gout, unspecified; F31.9 Bipolar disorder, unspecified; R26.9 Unspecified abnormalities of gait and mobility; Z79.899 Other long term (current) drug therapy; Z79.01 Long term (current) use of anticoagulants; Z79.82 Long term (current) use of aspirin; Z95.0 Presence of cardiac pacemaker; Z98.42 Cataract extraction status, left eye; Z98.41 Cataract extraction status, right eye; Z95.1 Presence of aortocoronary bypass graft; Z85.46 Personal history of malignant neoplasm of prostate; Z87.891 Personal history of nicotine dependence; Z88.5 Allergy status to narcotic agent; Z88.6 Allergy status to analgesic agent; Z88.2 Allergy status to sulfonamides; Z88.8 Allergy status to other drugs, medicaments and biological substances; Z91.040 Latex allergy status; Z80.3 Family history of malignant neoplasm of breast; Z81.8 Family history of other mental and behavioral disorders
CPT/HCPCS: 36415; 70450; 80048; 80306; 81001; 82140; 83735; 85025; 85610; 87040; 87086; 93005; 99285

== ENCOUNTER 2018-06-22 10:45 | Emergency (ER) | payer MEDICARE ==
--- NOTE | 2018-06-22 10:56 | ED ---
General Adult HPI - General Stated complaint: FALL Time Seen by Provider: 06/22/18 10:45 Source: RN notes reviewed - History of Present Illness Initial comments: This is a 78-year-old male who was seen in bed this morning and then shortly thereafter he was seen lying next to his bed with a small very superficial abrasion on his left cheek. Patient has significant dementia and is unable to give any history. According to the staff he is at his neurologic baseline. No other injury was noted according to the staff or EMS. No family member or staff member is here with the patient so no further history can be obtained. - Related Data Home Medications Medication Instructions Recorded Confirmed Lisinopril [Zestril] 20 mg PO DAILY 04/22/18 06/22/18 [place] Carbonate 600 mg PO HS 04/22/18 06/22/18 Multivitamins, Thera [Multivitamin 1 tab PO DAILY 04/22/18 06/22/18 (formulary)] Primidone [Mysoline] 50 mg PO HS 04/22/18 06/22/18 Tamsulosin HCl [Flomax] 0.4 mg PO DAILY 04/22/18 06/22/18 Aspirin EC [Ecotrin Low Dose] 81 mg PO HS@199904/24/18 06/22/18 L.acidoph,Paracasei, B.lactis 1 cap PO HS 04/24/18 06/22/18 [Probiotic] Nitroglycerin Sl Tabs [Nitrostat] 0.4 mg SUBLINGUAL Q5M PRN 05/31/18 06/22/18 Cholecalciferol (Vitamin D3) 2,000 unit PO DAILY@1600 06/02/18 06/22/18 [Vitamin D3] Mirabegron [Myrbetriq] 50 mg PO HS 06/02/18 06/22/18 Warfarin [Coumadin] 1 mg PO MOFR 06/02/18 06/22/18 Warfarin [Coumadin] 7.5 mg PO MOFR 06/02/18 06/22/18 Warfarin [Coumadin] 10 mg PO SUTUWETHSA 06/02/18 06/22/18 Allopurinol [Zyloprim] 300 mg PO DAILY@1600 06/22/18 06/22/18 Atorvastatin [Lipitor] 80 mg PO HS 06/22/18 06/22/18 Folic Acid 1 mg PO DAILY@0800 06/22/18 06/22/18 [place] 500 mg PO BID@0800,1600 06/22/18 06/22/18 Omeprazole [PriLOSEC] 20 mg PO AC-BRKFST 06/22/18 06/22/18 Pramipexole [Mirapex] 1 mg PO HS@2000 06/22/18 06/22/18 Sotalol [Betapace] 80 mg PO BID@0800,1600 06/22/18 06/22/18 Thiamine [Vitamin B-1] 100 mg PO DAILY@0800 06/22/18 06/22/18 Previous Rx's Medication Instructions Recorded Cyanocobalamin [Vitamin B-12] 1,000 mcg PO DAILY tab 06/05/18 Pantoprazole [Protonix] 40 mg PO AC-BRKFST tablet. 06/05/18 Rivastigmine 9.5MG/24Hr Patch 1 patch TRANSDERM Q24HR patch 06/05/18 [Exelon 9.5MG/24Hr Patch] Allergies Allergy/AdvReac Type Severity Reaction Status Date / Time celecoxib [From Celebrex] Allergy Unknown Verified 06/22/18 10:54 codeine Allergy Unknown Verified 06/22/18 10:54 diphenhydramine Allergy Unknown Verified 06/22/18 10:54 [From Benadryl] haloperidol [From Haldol] Allergy Unknown Verified 06/22/18 10:54 NSAIDS (Non-Steroidal Allergy Unknown Verified 06/22/18 10:54 Anti-Inflamma Sulfa (Sulfonamide Allergy Unknown Verified 06/22/18 10:54 Antibiotics) latex AdvReac "SKIN Verified 06/22/18 10:54 REDNESS" Review of Systems ROS Statement: Those systems with pertinent positive or pertinent negative responses have been documented in the HPI. ROS Other: All systems not noted in ROS Statement are negative. Past Medical History Past Medical History: Atrial Fibrillation, Coronary Artery Disease (CAD), Dementia, Hyperlipidemia, Hypertension, Prostate Disorder Additional Past Medical History / Comment(s): Zay body dementia, hematuria-cat scan suspicious mass in bladder-cysto/bx showed cancer-need BCG treatment however has been incontinent of urine, recent UTI, utis in past, recent fall with L upper arm tendon injuries, gout, occasional back pain, passed kidney stones as a child, polio as child-no residual, slow shuffling gait, recent f alls. History of Any Multi-Drug Resistant Organisms: None Reported Past Surgical History: Coronary Bypass/CABG, Hernia Repair, Pacemaker Additional Past Surgical History / Comment(s): Recent cystoscopy/bx, CABG 3 vessel 1993, pacemaker 2013, cardioversion, L inguinal hernia repair, cataract removals bilaterally, Past Anesthesia/Blood Transfusion Reactions: Previous Problems w/ Anesthesia Additional Past Anesthesia/Blood Transfusion Reaction / Comment(s): stated that after cabg sx pt had subtle memory problems attitudes and responses to certain topics were off. Type of Cardiac Device: Permanent Pacemaker Device Placement Date:: 2013 Smoking Status: Former smoker - Past Family History Mother Family Medical History: Cancer Additional Family Medical History / Comment(s): breast cancer in her 80's, hx bipolar Father Additional Family Medical History / Comment(s): lung problems General Exam - General Exam Comments Initial Comments: GENERAL: Patient is well-developed and well-nourished. Patient is nontoxic and well- hydrated and is in no acute distress. ENT: Neck is soft and supple. No significant lymphadenopathy is noted. Oropharynx is clear. Moist mucous membranes. Neck has full range of motion without eliciting any pain. Patient has a very superficial abrasions left cheek that does not appear to be tender when I palpated EYES: The sclera were anicteric and conjunctiva were pink and moist. Extraocular movements were intact and pupils were equal round and reactive to light. Eyelids were unremarkable. PULMONARY: Unlabored respirations. Good breath sounds bilaterally. No audible rales rhonchi or wheezing was noted. CARDIOVASCULAR: There is a regular rate and rhythm without any murmurs gallops or rubs. ABDOMEN: Soft and nontender with normal bowel sounds. SKIN: Skin is clear with no lesions or rashes and otherwise unremarkable. NEUROLOGIC: Patient is alert and oriented times which we are told this is baseline. Cranial nerves II through XII are grossly intact. Motor and sensory are also intact. Normal speech, volume and content. Symmetrical smile. MUSCULOSKELETAL: Normal extremities with adequate strength and full range of motion. No lower extremity swelling or edema. No calf tenderness. LYMPHATICS: No significant lymphadenopathy is noted PSYCHIATRIC: Unable to assess secondary to dementia Course Vital Signs 06/22/18 10:46 Temperature 98.6 F Pulse Rate 53 L Respiratory 18 Rate Blood Pressure 158/70 O2 Sat by Pulse 94 L Oximetry Medical Decision Making - Medical Decision Making It was an unwitnessed fall out of bed so whether the patient lost consciousness or not is unknown. Patient will be CAT scan. Patient also is a very poor historian. Patient's CT of the brain and C-spine are normal Patient had no other complaints and it didn't appear to be any other areas of trauma. Disposition Clinical Impression: Fall, Contusion of face Disposition: HOME SELF-CARE Condition: Good Instructions (If sedation given, give patient instructions): Fall Prevention for Older Adults (ED) Is patient prescribed a controlled substance at d/c from ED?: No Referrals: Gage Preston DO [Primary Care Provider] - 1-2 days Time of Disposition: 11:53
--- NOTE | 2018-06-22 11:41 | CT ---
EXAMINATION TYPE: CT brain geovaniine wo con DATE OF EXAM: 06/22/2018 COMPARISON: Previous study dated 05/31/2018 HISTORY: pain/fall from his bed/abrasion lt cheek CT DLP: 3193 mGycm Automated exposure control for dose reduction was used. TECHNIQUE: CT scan of the head and cervical spine are performed without contrast. FINDINGS: BRAIN: The study is compromised by patient motion artifact. There are mild changes of sulcal prominence and ventriculomegaly, compatible with mild atrophic roy e. There is some periventricular white matter lucency compatible with small vessel ischemic change. T here is no acute focal lesion, mass effect or midline shift identified. I do not see evidence of intr acranial blood. There is minimal mucoperiosteal thickening involving the posterior ethmoidal air cells on the right. Visualized portions of the paranasal sinuses and mastoids are otherwise clear. The bony calvarium is intact. IMPRESSION: 1. NO ACUTE INTRACRANIAL ABNORMALITY. 2. MILD ATROPHIC CHANGE. 3. MINIMAL RIGHT-SIDED ETHMOIDAL SINUS MUCOSAL DISEASE. CERVICAL SPINE: This study is compromised by patient motion artifact. There are mild emphysematous changes within the lungs. Prevertebral soft tissues are incompletely assessed due to patient motion. There is a reversal of the normal cervical lordosis which is replaced by kyphosis. There is a large a mount of motion artifact present at C2-3 which gives the appearance of grade 2 spondylolisthesis. No discrete fracture is seen. There is hypertrophic spondylosis present both anteriorly and posteriorly most marked at C4-5, C5-6 and C6-7. No definite protrusion is seen. No fracture is identified. IMPRESSION: 1. STUDY MARKEDLY COMPROMISED BY PATIENT ARTIFACT. 2. DEGENERATIVE CHANGE. 3. NO DEFINITE ACUTE OSSEOUS LESION.
[2018-06-22 14:42] VITALS: BP 155/75; PULSE 77; RESP 15; TEMP 98
== END 2018-06-22 14:42 | disposition home or self-care (01) ==
LOC: EC 10:45
DX: S00.81XA Abrasion of other part of head, initial encounter (principal); I48.91 Unspecified atrial fibrillation; I25.10 Atherosclerotic heart disease of native coronary artery without angina pectoris; E78.5 Hyperlipidemia, unspecified; F03.90 Unspecified dementia, unspecified severity, without behavioral disturbance, psychotic disturbance, mood disturbance, and anxiety; I10 Essential (primary) hypertension; Z79.01 Long term (current) use of anticoagulants; Z79.82 Long term (current) use of aspirin; Z79.899 Other long term (current) drug therapy; Z88.5 Allergy status to narcotic agent; Z88.8 Allergy status to other drugs, medicaments and biological substances; Z88.6 Allergy status to analgesic agent; Z88.2 Allergy status to sulfonamides; Z91.040 Latex allergy status; Z95.1 Presence of aortocoronary bypass graft; Z95.0 Presence of cardiac pacemaker; Z87.891 Personal history of nicotine dependence; W06.XXXA Fall from bed, initial encounter; Y92.003 Bedroom of unspecified non-institutional (private) residence as the place of occurrence of the external cause
CPT/HCPCS: 70450; 72125; 99284

== ENCOUNTER 2018-06-23 18:14 | Emergency (ER) | payer MEDICARE ==
[2018-06-23 18:31] VITALS: BP 130/65; PULSE 50; RESP 20
--- NOTE | 2018-06-23 19:04 | CT ---
EXAMINATION TYPE: CT brain cspine wo con DATE OF EXAM: 06/23/2018 COMPARISON: Yesterday HISTORY: ams, pt uncooperative CT DLP: 1571.6 mGycm Automated exposure control for dose reduction was used. TECHNIQUE: CT scan of the head and cervical spine are performed without contrast. FINDINGS: There is cerebral cortical atrophy. There is no mass effect nor midline shift. There is n o sign of intracranial hemorrhage. Calvarium is intact. Exam limited slightly by motion. Cervical vertebra have normal alignment. There is degenerative disc space narrowing from C4 to T1 wit h spurring of the endplates. Facet joints are intact. The skull base is intact. Prevertebral soft tis sues are within normal limits. IMPRESSION: Cerebral atrophy. No acute intracranial abnormality. Spondylotic changes in the lower cervical spine. No fracture.
--- NOTE | 2018-06-23 19:40 | ED ---
Altered Mental Status HPI - General Chief Complaint: Altered Mental Status Stated Complaint: Altered Mental Time Seen by Provider: 06/23/18 18:24 Source: EMS, RN notes reviewed, old records reviewed Mode of arrival: EMS Limitations: altered mental status - History of Present Illness Initial Comments: This is a 78-year-old male the ER for evaluation. Presents today for evaluation of progressive dementia fall multiple falls with unresponsiveness. Patient is a poor historian so medical record is obtained through EMS and patient's family. states patient has been having progressive dementia since he had general anesthesia for a bladder cancer. Patient symptoms are significant. Patient is to be able to talk and carry on conversation, patient can no longer talk he does not do anything voluntary, he is unable to carry out any activity of daily living when he spilled address feed eat and entertain himself. Patient presents today again from [facility] facility for evaluation regarding fall and weakness as well as altered mental status and unresponsiveness MD Complaint: altered mental status, confusion, decreased responsiveness, weakness -: week(s) Severity: severe Consistency of Symptoms: waxing and waning, getting worse Context: history of similar presentation, other (lewy body dementia) Associated Symptoms: weakness, difficulty walking, incontinence - Related Data Home Medications Medication Instructions Recorded Confirmed Lisinopril [Zestril] 20 mg PO DAILY 04/22/18 06/23/18 [place] Carbonate 600 mg PO HS 04/22/18 06/23/18 Multivitamins, Thera [Multivitamin 1 tab PO DAILY 04/22/18 06/23/18 (formulary)] Primidone [Mysoline] 50 mg PO HS 04/22/18 06/23/18 Tamsulosin HCl [Flomax] 0.4 mg PO DAILY 04/22/18 06/23/18 Aspirin EC [Ecotrin Low Dose] 81 mg PO HS@199904/24/18 06/23/18 Nitroglycerin Sl Tabs [Nitrostat] 0.4 mg SUBLINGUAL Q5M PRN 05/31/18 06/23/18 Cholecalciferol (Vitamin D3) 2,000 unit PO DAILY@1600 06/02/18 06/23/18 [Vitamin D3] Mirabegron [Myrbetriq] 50 mg PO HS 06/02/18 06/23/18 Warfarin [Coumadin] 1 mg PO MOFR 06/02/18 06/23/18 Warfarin [Coumadin] 7.5 mg PO MOFR 06/02/18 06/23/18 Warfarin [Coumadin] 10 mg PO SUTUWETHSA 06/02/18 06/23/18 Allopurinol [Zyloprim] 300 mg PO DAILY@1600 06/22/18 06/23/18 Atorvastatin [Lipitor] 80 mg PO HS 06/22/18 06/23/18 Folic Acid 1 mg PO DAILY@0800 06/22/18 06/23/18 Krill Oil 500 mg PO BID@0800,1600 06/22/18 06/23/18 Pramipexole [Mirapex] 1 mg PO HS@199906/22/18 06/23/18 Sotalol [Betapace] 80 mg PO BID@0800,1600 06/22/18 06/23/18 Thiamine [Vitamin B-1] 100 mg PO DAILY@0800 06/22/18 06/23/18 Omeprazole 40 mg PO DAILY 06/23/18 06/23/18 Previous Rx's Medication Instructions Recorded Cyanocobalamin [Vitamin B-12] 1,000 mcg PO DAILY tab 06/05/18 Rivastigmine 9.5MG/24Hr Patch 1 patch TRANSDERM Q24HR patch 06/05/18 [Exelon 9.5MG/24Hr Patch] Allergies Allergy/AdvReac Type Severity Reaction Status Date / Time celecoxib [From Celebrex] Allergy Unknown Verified 06/23/18 19:17 codeine Allergy Unknown Verified 06/23/18 19:17 diphenhydramine Allergy Unknown Verified 06/23/18 19:17 [From Benadryl] haloperidol [From Haldol] Allergy Unknown Verified 06/23/18 19:17 NSAIDS (Non-Steroidal Allergy Unknown Verified 06/23/18 19:17 Anti-Inflamma Sulfa (Sulfonamide Allergy Unknown Verified 06/23/18 19:17 Antibiotics) latex AdvReac "SKIN Verified 06/23/18 19:17 REDNESS" Review of Systems ROS Statement: Those systems with pertinent positive or pertinent negative responses have been documented in the HPI. ROS Other: All systems not noted in ROS Statement are negative. Past Medical History Past Medical History: Atrial Fibrillation, Coronary Artery Disease (CAD), Dementia, Hyperlipidemia, Hypertension, Prostate Disorder Additional Past Medical History / Comment(s): Zay body dementia, hematuria-cat scan suspicious mass in bladder-cysto/bx showed cancer-need BCG treatment however has been incontinent of urine, recent UTI, utis in past, recent fall with L upper arm tendon injuries, gout, occasional back pain, passed kidney stones as a child, polio as child-no residual, slow shuffling gait, recent falls. History of Any Multi-Drug Resistant Organisms: None Reported Past Surgical History: Coronary Bypass/CABG, Hernia Repair, Pacemaker Additional Past Surgical History / Comment(s): Recent cystoscopy/bx, CABG 3 vessel 1993, pacemaker 2013, cardioversion, L inguinal hernia repair, cataract removals bilaterally, Past Anesthesia/Blood Transfusion Reactions: Previous Problems w/ Anesthesia Additional Past Anesthesia/Blood Transfusion Reaction / Comment(s): stated that after cabg sx pt had subtle memory problems attitudes and responses to certain topics were off. Type of Cardiac Device: Permanent Pacemaker Device Placement Date:: 2013 Past Psychological History: Bipolar Smoking Status: Former smoker - Past Family History Mother Family Medical History: Cancer Additional Family Medical History / Comment(s): breast cancer in her 80's, hx bipolar Father Additional Family Medical History / Comment(s): lung problems General Exam - General Exam Comments Initial Comments: Patient is contracted with multiple involuntary movements Limitations: altered mental status General appearance: alert, in no apparent distress Head exam: Present: atraumatic, normocephalic, normal inspection Eye exam: Present: normal appearance, PERRL, EOMI. Absent: scleral icterus, conjunctival injection, periorbital swelling ENT exam: Present: normal exam, mucous membranes moist Neck exam: Present: normal inspection. Absent: tenderness, meningismus, lymphadenopathy Respiratory exam: Present: normal lung sounds bilaterally. Absent: respiratory distress, wheezes, rales, rhonchi, stridor Cardiovascular Exam: Present: regular rate, normal rhythm, normal heart sounds. Absent: systolic murmur, diastolic murmur, rubs, gallop, clicks GI/Abdominal exam: Present: soft, normal bowel sounds. Absent: distended, tenderness, guarding, rebound, rigid Extremities exam: Present: normal inspection, full ROM, normal capillary refill. Absent: tenderness, pedal edema, joint swelling, calf tenderness Back exam: Present: normal inspection Neurological exam: Present: alert, oriented X3, CN II-XII intact Psychiatric exam: Present: normal affect, normal mood Skin exam: Present: warm, dry, intact, normal color. Absent: rash Course Vital Signs 06/23/18 18:16 Temperature 97.8 F Pulse Rate 50 L Respiratory 20 Rate Blood Pressure 130/65 O2 Sat by Pulse 130 H Oximetry - Reevaluation(s) Reevaluation #1: 06/23/18 21:00 Medical record is reviewed Reevaluation #2: 06/23/18 21:00 Spoke with family at length great length as well as reviewing patient's prior charting, decision made to transfer for neurological evaluation - Consultations Consultation #1: Spoke with [facility] regarding transfer, they're agreeable for admission Medical Decision Making - Medical Decision Making 78 male the ER for evaluation. Patient presents today for evaluation regards to continued altered mental status confusion worsening dementia unresponsiveness and difficulty with activities. Patient be transferred for neurological ev aluation - Lab Data Result diagrams: 06/23/18 19:31 06/23/18 19:31 Lab Results 06/23/18 06/23/18 06/23/18 Range/Units 19:31 19:31 19:31 WBC 9.3 (3.8-10.6) k/uL RBC 4.87 (4.30-5.90) m/uL Hgb 14.3 (13.0-17.5) gm/dL Hct 45.0 (39.0-53.0) % MCV 92.5 (80.0-100.0) fL MCH 29.4 (25.0-35.0) pg MCHC 31.7 (31.0-37.0) g/dL RDW 14.4 (11.5-15.5) % Plt Count 181 (150-450) k/uL Neutrophils % 84 % Lymphocytes % 8 % Monocytes % 4 % Eosinophils % 3 % Basophils % 0 % Neutrophils # 7.8 H (1.3-7.7) k/uL Lymphocytes # 0.7 L (1.0-4.8) k/uL Monocytes # 0.4 (0-1.0) k/uL Eosinophils # 0.2 (0-0.7) k/uL Basophils # 0.0 (0-0.2) k/uL PT 33.5 H (9.0-12.0) sec INR 3.5 H (<1.2) APTT 39.8 H (22.0-30.0) sec Sodium 142 (137-145) mmol/L Potassium 5.1 (3.5-5.1) mmol/L Chloride 111 H (98-107) mmol/L Carbon Dioxide 26 (22-30) mmol/L Anion Gap 5 mmol/L BUN 39 H (9-20) mg/dL Creatinine 2.10 H (0.66-1.25) mg/dL Est GFR (CKD-EPI)AfAm 34 (>60 ml/min/1.73 sqM) Est GFR (CKD-EPI)NonAf 30 (>60 ml/min/1.73 sqM) Glucose 126 H (74-99) mg/dL Calcium 10.5 H (8.4-10.2) mg/dL Total Bilirubin 0.4 (0.2-1.3) mg/dL AST 19 (17-59) U/L ALT 25 (21-72) U/L Alkaline Phosphatase 111 (38-126) U/L Troponin I (0.000-0.034) ng/mL Total Protein 6.3 (6.3-8.2) g/dL Albumin 3.8 (3.5-5.0) g/dL Urine Color Urine Appearance (Clear) Urine pH (5.0-8.0) Ur Specific [place] (1.001-1.035) Urine Protein (Negative) Urine Glucose (UA) (Negative) Urine Ketones (Negative) Urine Blood (Negative) Urine Nitrite (Negative) Urine Bilirubin (Negative) Urine Urobilinogen (<2.0) mg/dL Ur Leukocyte Esterase (Negative) Urine RBC (0-5) /hpf Urine WBC (0-5) /hpf Amorphous Sediment (None) /hpf Hyaline Casts (0-2) /lpf Urine Mucus (None) /hpf Urine Opiates Screen (NotDetected) Ur Oxycodone Screen (NotDetected) Urine Methadone Screen (NotDetected) Ur Propoxyphene Screen (NotDetected) Ur Barbiturates Screen (NotDetected) U Tricyclic Antidepress (NotDetected) Ur Phencyclidine Scrn (NotDetected) Ur Amphetamines Screen (NotDetected) U Methamphetamines Scrn (NotDetected) U Benzodiazepines Scrn (NotDetected) Urine Cocaine Screen (NotDetected) U Marijuana (THC) Screen (NotDetected) 06/23/18 06/23/18 Range/Units 19:31 19:54 WBC (3.8-10.6) k/uL RBC (4.30-5.90) m/uL Hgb (13.0-17.5) gm/dL Hct (39.0-53.0) % MCV (80.0-100.0) fL MCH (25.0-35.0) pg MCHC (31.0-37.0) g/dL RDW (11.5-15.5) % Plt Count (150-450) k/uL Neutrophils % % Lymphocytes % % Monocytes % % Eosinophils % % Basophils % % Neutrophils # (1.3-7.7) k/uL Lymphocytes # (1.0-4.8) k/uL Monocytes # (0-1.0) k/uL Eosinophils # (0-0.7) k/uL Basophils # (0-0.2) k/uL PT (9.0-12.0) sec INR (<1.2) APTT (22.0-30.0) sec Sodium (137-145) mmol/L Potassium (3.5-5.1) mmol/L Chloride (98-107) mmol/L Carbon Dioxide (22-30) mmol/L Anion Gap mmol/L BUN (9-20) mg/dL Creatinine (0.66-1.25) mg/dL Est GFR (CKD-EPI)AfAm (>60 ml/min/1.73 sqM) Est GFR (CKD-EPI)NonAf (>60 ml/min/1.73 sqM) Glucose (74-99) mg/dL Calcium (8.4-10.2) mg/dL Total Bilirubin (0.2-1.3) mg/dL AST (17-59) U/L ALT (21-72) U/L Alkaline Phosphatase (38-126) U/L Troponin I 0.013 (0.000-0.034) ng/mL Total Protein (6.3-8.2) g/dL Albumin (3.5-5.0) g/dL Urine Color Yellow Urine Appearance Cloudy (Clear) Urine pH 6.0 (5.0-8.0) Ur Specific [place] 1.016 (1.001-1.035) Urine Protein 1+ H (Negative) Urine Glucose (UA) Negative (Negative) Urine Ketones Negative (Negative) Urine Blood Negative (Negative) Urine Nitrite Negative (Negative) Urine Bilirubin Negative (Negative) Urine Urobilinogen 2.0 (<2.0) mg/dL Ur Leukocyte Esterase Trace H (Negative) Urine RBC 2 (0-5) /hpf Urine WBC 7 H (0-5) /hpf Amorphous Sediment Rare H (None) /hpf Hyaline Casts 26 H (0-2) /lpf Urine Mucus Few H (None) /hpf Urine Opiates Screen Not Detected (NotDetected) Ur Oxycodone Screen Not Detected (NotDetected) Urine Methadone Screen Not Detected (NotDetected) Ur Propoxyphene Screen Not Detected (NotDetected) Ur Barbiturates Screen Detected H (NotDetected) U Tricyclic Antidepress Not Detected (NotDetected) Ur Phencyclidine Scrn Not Detected (NotDetected) Ur Amphetamines Screen Not Detected (NotDetected) U Methamphetamines Scrn Not Detected (NotDetected) U Benzodiazepines Scrn Not Detected (NotDetected) Urine Cocaine Screen Not Detected (NotDetected) U Marijuana (THC) Screen Not Detected (NotDetected) - EKG Data -: EKG Interpreted by Me (EKG shows pacemaker rate of 50, VT 160, QRS 172, QTc 497) - Radiology Data Radiology results: report reviewed (CT brain is negative for acute disease or changes), image reviewed Disposition Clinical Impression: Dementia, Weakness, Fall, Altered mental status, Delirium due to general medical condition Disposition: OTHER INSTITUTION NOT DEFINED Condition: Fair Is patient prescribed a controlled substance at d/c from ED?: No Referrals: Gage Preston DO [Primary Care Provider] - 1-2 days - Out of Hospital Transfer - Req. Specs Out of Hospital Transfer - Requested Specifics: Other Emergency Center ([facility])
[2018-06-23 20:00] LABS: Basophils % (A) 0 %; Eosinophils # (A) 0.2 k/uL (0-0.7); Eosinophils % (A) 3 %; HGB 14.3 gm/dL (13.0-17.5); Lymphocytes # (A) 0.7 k/uL (1.0-4.8); Lymphocytes % (A) 8 %; MCH 29.4 pg (25.0-35.0); MCHC 31.7 g/dL (31.0-37.0); MCV 92.5 fL (80.0-100.0); Mean Platelet Volume 6.9; Monocytes # (A) 0.4 k/uL (0-1.0); Monocytes % (A) 4 %; Neutrophils # (A) 7.8 k/uL (1.3-7.7); Neutrophils % (A) 84 %; Platelet Count 181 k/uL (150-450); RBC 4.87 m/uL (4.30-5.90); RDW 14.4 % (11.5-15.5); WBC 9.3 k/uL (3.8-10.6)
[2018-06-23 20:06] LABS: INR 3.5 (<1.2); Partial Thromboplastin Time 39.8 sec (22.0-30.0); Prothrombin Time 33.5 sec (9.0-12.0)
[2018-06-23 20:09] LABS: Albumin 3.8 g/dL (3.5-5.0); Calcium 10.5 mg/dL (8.4-10.2); Potassium 5.1 mmol/L (3.5-5.1); Total Bilirubin 0.4 mg/dL (0.2-1.3); Total Protein 6.3 g/dL (6.3-8.2)
[2018-06-23 20:14] LABS: Amorphous Sediment,Urine Rare /hpf; Appearance,Urine Cloudy (Clear); Bilirubin,Urine Negative (Negative); Blood,Urine Negative (Negative); Color,Urine Yellow; Glucose,Urine (UA) Negative (Negative); Hyaline Casts,Urine 26 /lpf (0-2); Ketones,Urine Negative (Negative); Leukocyte Esterase,Urine Trace (Negative); Mucus,Urine Few /hpf; Nitrite,Urine Negative (Negative); Protein,Urine 1+ (Negative); RBC,Urine 2 /hpf (0-5); Specific Gravity,Urine 1.016 (1.001-1.035); WBC,Urine 7 /hpf (0-5)
[2018-06-23 20:21] LABS: Amphetamine Screen,Urine Not Detected (NotDetected); Barbiturate Screen,Urine Detected (NotDetected); Benzodiazepines Screen,Urine Not Detected (NotDetected); Cocaine Screen,Urine Not Detected (NotDetected); Methadone Screen, Urine Not Detected (NotDetected); Opiate Screen,Urine Not Detected (NotDetected); Oxycodone Screen, Urine Not Detected (NotDetected); Phencyclidine Screen,Urine Not Detected (NotDetected); Tricyclic Antidepressant,Urine Not Detected (NotDetected); Urn Cannabinoid Scrn Not Detected (NotDetected)
[2018-06-23 21:42] VITALS: TEMP 98.3
== END 2018-06-23 21:38 | disposition short-term general hospital (02) ==
LOC: EC 18:14
DX: F05 Delirium due to known physiological condition (principal); F02.80 Dementia in other diseases classified elsewhere, unspecified severity, without behavioral disturbance, psychotic disturbance, mood disturbance, and anxiety; R53.1 Weakness; R29.6 Repeated falls; C67.9 Malignant neoplasm of bladder, unspecified; R26.2 Difficulty in walking, not elsewhere classified; R32 Unspecified urinary incontinence; I48.91 Unspecified atrial fibrillation; I25.10 Atherosclerotic heart disease of native coronary artery without angina pectoris; E78.5 Hyperlipidemia, unspecified; I10 Essential (primary) hypertension; G31.83 Neurocognitive disorder with Lewy bodies; M10.9 Gout, unspecified; F31.9 Bipolar disorder, unspecified; N42.9 Disorder of prostate, unspecified; Z87.891 Personal history of nicotine dependence; Z88.2 Allergy status to sulfonamides; Z88.5 Allergy status to narcotic agent; Z88.6 Allergy status to analgesic agent; Z88.8 Allergy status to other drugs, medicaments and biological substances; Z91.040 Latex allergy status; Z79.01 Long term (current) use of anticoagulants; Z79.82 Long term (current) use of aspirin; Z79.899 Other long term (current) drug therapy; Z86.12 Personal history of poliomyelitis; Z95.0 Presence of cardiac pacemaker; Z95.1 Presence of aortocoronary bypass graft
CPT/HCPCS: 36415; 70450; 72125; 80053; 80306; 81001; 84484; 85025; 85610; 85730; 93005; 99285